=== PATIENT | female | born 1965 | race Caucasian/White ===

== ENCOUNTER 2023-01-03 05:43 | Day surgery (SDC) | payer OTHER ==
[2022-12-30 11:38] VITALS: BMI 21.2
[2023-01-03] MEDS ORDERED: LIDOCAINE 1% (10MG/ML) FOR IV START INTRADERMA PRN (06:16)
[2023-01-03 06:29] VITALS: TEMP 97.5
[2023-01-03] MEDS: LACTATED RINGERS 1,000 ML IV SCH ×2 (06:41→06:59)
[2023-01-03] MEDS ORDERED: PROPOFOL 10 MG/ML 20 ML VIAL IV ONE (07:05)
[2023-01-03] MEDS ORDERED: LIDOCAINE 2% INJ 20 MG/ML (2 ML VIAL) ONE (07:05)
--- NOTE | 2023-01-03 07:32 | P.PCN ---
Date of Procedure: 01/03/23 Procedure(s) Performed: Brief history: Patient is a pleasant 57-year-old white female scheduled for an elective upper endoscopy as well as colonoscopy as a part of evaluation of intermittent nausea vomiting and rectal bleeding for the last several months duration. She also has chronic diarrhea, was admitted from 4-5 a day which are watery in consistency. Procedure performed: Esophagogastroduodenoscopy with biopsy Colonoscopy with biopsy and snare polypectomy Preoperative diagnosis: Intermittent episodes of nausea vomiting Chronic diarrhea and rectal bleeding Anesthesia: MAC Procedure: After informed consent was obtained from the patient was brought into the endoscopy unit and IV sedation was administered by anesthesia under continuous monitoring. Initially upper endoscopy was done. The Olympus GF 160 video endoscope was inserted inserted into the mouth and esophagus intubated without a ny difficulty and was gradually advanced into the stomach and duodenum and carefully examined. The bulb and second part of the duodenum appeared normal. Abscesses were done from the duodenum to rule out celiac disease. The scope was then withdrawn into the stomach adequately insufflated with air and upon careful examination the antrum had mild gastritis and biopsies were done from this area. Mucosa of thedy, cardia and fundus appeared normal. The scope was then withdrawn into the esophagus. small hiatal hernia noted. The GE junction was located at 40 cm to the incisors. It appeared regular with no erythema erosions or ulcerations. Rest of the esophagus appeared normal. Patient tolerated the procedure well. At this time the patient continued to remain sedation. Initial digital rectal examination was normal. Olympus CF 160 video colonoscope was then inserted into the rectum and gradually advanced to the cecum without any difficulty. Careful examination was performed as the scope was gradually being withdrawn. The prep was excellent. The cecum, appeared normal. Ascending colon there was a 2 cm broad-based polyp removed by piecemeal snare polypectomy and complete scarlet ypectomy accomplished. Rest of the ascending colon, transverse colon, descending colon, sigmoid colon and rectum appeared normal. scattered sigmoid diverticulosis seen. Random biopsies were done from ascending and descending colon to rule out microscopic/collagenous colitis. Retroflexion was performed in the rectum and grade 2 internal hemorrhoidsre noted. Patient tolerated the procedure well. Impression: 1. Upper endoscopy revealed small hiatal hernia and mild antral gastritis 2. Colonoscopy revealed 2 cm broad-based ascending colon polyp status post polypectomy, scattered sigmoid diverticulosis and grade 2 internal hemorrhoids Recommendations: Findings of this examination were discussed with the patient as well as her family. She was advised to follow with the biopsy results. she'll be seen in office in 2 weeks. Based on the biopsy results will plan a repeat colonoscopy in 3 years. In the meantime she was advised to avoid straining and constipation and continue with a high-fiber diet.
[2023-01-03 07:48] VITALS: RESP 16
[2023-01-03 08:07] VITALS: BP 123/84; PULSE 97
== END 2023-01-03 08:41 | disposition home or self-care (01) ==
LOC: ORWHC2ENDO 05:43
PROVIDERS: ATTEND Internal Medicine Gastroenterology
DX: K29.50 Unspecified chronic gastritis without bleeding (principal); K44.9 Diaphragmatic hernia without obstruction or gangrene; D12.2 Benign neoplasm of ascending colon; K21.9 Gastro-esophageal reflux disease without esophagitis; Z87.19 Personal history of other diseases of the digestive system; K64.1 Second degree hemorrhoids; Z79.899 Other long term (current) drug therapy
CPT/HCPCS: 88305; 45380; 45385; 43239; J2704; J2001

== ENCOUNTER 2023-11-29 11:45 | Inpatient (IN) | payer OTHER ==
[2023-11-29] MEDS: SODIUM CHLORIDE 0.9% 1,000 ML IV STA (12:26)
[2023-11-29 12:35] LABS: Anisocytosis Slight; Basophils % (A) 1 %; Eosinophils # (A) 0.1 k/uL (0-0.7); Eosinophils % (A) 1 %; Hypochromasia Marked; Lymphocytes # (A) 1.4 k/uL (1.0-4.8); Lymphocytes % (A) 20 %; MCH 27.9 pg (25.0-35.0); MCHC 30.3 g/dL (31.0-37.0); MCV 91.8 fL (80.0-100.0); Mean Platelet Volume 8.5; Monocytes # (A) 0.5 k/uL (0-1.0); Monocytes % (A) 7 %; Neutrophils # (A) 4.6 k/uL (1.3-7.7); Neutrophils % (A) 67 %; Platelet Count 277 k/uL (150-450); Poikilocytosis Moderate; RBC 2.12 m/uL (3.80-5.40); RDW 19.7 % (11.5-15.5); WBC 6.8 k/uL (3.8-10.6)
[2023-11-29 12:39] LABS: HGB 5.9 gm/dL (11.4-16.0)
[2023-11-29 12:40] LABS: HCT 19.4 % (34.0-46.0)
[2023-11-29 12:42] LABS: Partial Thromboplastin Time 24.4 sec (22.0-30.0)
--- NOTE | 2023-11-29 12:44 | XR ---
EXAMINATION TYPE: XR chest 2V DATE OF EXAM: 11/29/2023 12:37 PM CLINICAL INDICATION:Female, 58 years old with history of Weakness; [facility] COMPARISON: None TECHNIQUE: XR chest 2V Frontal view of the chest. FINDINGS: Lungs/Pleura: There is flattening of the diaphragm with increased lucency of the lungs. No evidence o f pneumothorax, pleural effusion or focal consolidation. Pulmonary vascularity: Unremarkable. Heart/mediastinum: Cardiomediastinal silhouette is unremarkable. Musculoskeletal: No acute osseous pathology. IMPRESSION: 1. No acute cardiopulmonary disease process. 2. COPD changes.
[2023-11-29 12:57] LABS: ALT 14 U/L (4-34); AST 75 U/L (14-36); African American GFR (CKD) >90 (>60 ml/min/1.73 sqM); Albumin 3.9 g/dL (3.5-5.0); Alkaline Phosphatase 146 U/L (38-126); Anion Gap 25 mmol/L; Blood Urea Nitrogen 7 mg/dL (7-17); Calcium 8.5 mg/dL (8.4-10.2); Carbon Dioxide 19 mmol/L (22-30); Chloride 90 mmol/L (98-107); Glucose 58 mg/dL (74-99); Non-African American GFR(CKD) >90 (>60 ml/min/1.73 sqM); Sodium 134 mmol/L (137-145); Total Bilirubin 1.6 mg/dL (0.2-1.3); Total Protein 6.2 g/dL (6.3-8.2)
--- NOTE | 2023-11-29 13:02 | ED ---
General Adult HPI - General Chief complaint: Weakness Stated complaint: Weakness Time Seen by Provider: 11/29/23 12:08 Source: patient, RN notes reviewed, old records reviewed Mode of arrival: wheelchair Limitations: no limitations - History of Present Illness Initial comments: 58-year-old female presenting with progressive weakness over the past 2 years. This has progressed to the point where the patient is not able to get around her home, she is not able to eat or drink secondary to the weakness. She has had poor appetite. She does report a chronic cough. No significant pain complaints. No headache. Patient history is also obtained from a caregiver and friend. - Related Data Home Medications Medication Instructions Recorded Confirmed No Known Home Medications 11/29/23 11/29/23 Allergies Allergy/AdvReac Type Severity Reaction Status Date / Time No Known Allergies Allergy Verified 11/29/23 13:11 Review of Systems ROS Statement: Those systems with pertinent positive or pertinent negative responses have been documented in the HPI. ROS Other: All systems not noted in ROS Statement are negative. Past Medical History Past Medical History: GERD/Reflux Additional Past Medical History / Comment(s): HAD BEEN HAVING DIARRHEA WITH B LOOD FOR PAST SEVERAL MONTHS History of Any Multi-Drug Resistant Organisms: None Reported Additional Past Surgical History / Comment(s): ORAL SX. COLONOSCOPY Past Anesthesia/Blood Transfusion Reactions: No Reported Reaction Past Psychological History: No Psychological Hx Reported Smoking Status: Current every day smoker - Past Family History Father Family Medical History: Cancer General Exam Limitations: no limitations General appearance: alert, cachectic Head exam: Present: atraumatic, normocephalic Eye exam: Present: normal appearance, PERRL ENT exam: Present: normal exam Neck exam: Present: normal inspection. Absent: tenderness, meningismus Respiratory exam: Present: normal lung sounds bilaterally. Absent: respiratory distress, wheezes Cardiovascular Exam: Present: regular rate, normal rhythm GI/Abdominal exam: Present: soft. Absent: distended, tenderness Rectal exam: Present: other (stage II sacral wound). Absent: black stool, bloo dy stool, hemorrhoids Extremities exam: Present: normal inspection, normal capillary refill. Absent: pedal edema Neurological exam: Present: alert, oriented X3. Absent: motor sensory deficit Psychiatric exam: Present: normal affect, normal mood Course Vital Signs 07/10/24 07/10/24 07/10/24 11:49 13:35 14:48 Temperature 97.8 F Pulse Rate 110 H 105 H 106 H Respiratory 18 18 16 Rate Blood Pressure 96/60 87/58 103/70 O2 Sat by Pulse 100 100 100 Oximetry 11/29/23 11/29/23 11/29/23 14:58 15:06 15:26 Temperature 98.3 F 98.2 F 98.1 F Pulse Rate 104 H 99 100 Respiratory 16 16 16 Rate Blood Pressure 113/73 115/74 110/76 O2 Sat by Pulse Oximetry 11/29/23 17:10 Temperature 98.3 F Pulse Rate 104 H Respiratory 18 Rate Blood Pressure 135/93 O2 Sat by Pulse 100 Oximetry Medical Decision Making - Medical Decision Making Was pt. sent in by a medical professional or institution (CARLOS Cardenas, RESOURCE PROGRAM TEACHER, urgent care, hospital, or custodial...) When possible be specific @ -No Did you speak to anyone other than the patient for history (EMS, parent, family, police, friend...)? What history was obtained from this source @ -No Did you review nursing and triage notes (agree or disagree)? Why? @ -I reviewed and agree with nursing and triage notes Were old charts reviewed (outside hosp., previous admission, EMS record, old EKG, old radiological studies, urgent care reports/EKG's, custodial records)? Report findings @ -No old charts were reviewed Differential Weakness: Hypoglycemia, shock, sepsis, hyponatremia, anemia, infection, MO, ETOH, adverse medicine reaction, overdose, stroke, this is not meant to be an all-inclusive list. EKG interpreted by me (3pts min.). @ -Sinus tachycardia rate of 106, AK interval 148, QRS duration 61, QTc [address] segment elevation. X-rays interpreted by me (1pt min.). @ -[Chest x-ray negative for acute cardiopulmonary findings CT interpreted by me (1pt min.). @ -None done U/S interpreted by me (1pt. min.). @ -None done What testing was considered but not performed or refused? (CT, X-rays, U/S, labs)? Why? @ -None What meds were considered but not given or refused? Why? @ -None Did you discuss the management of the patient with other professionals (professionals i.e. CARLOS Cardenas, RESOURCE PROGRAM TEACHER, lab, RT, psych nurse, social work specialist, sustainment logistics analyst, teacher, chief revenue officer, catalytic case operator)? Give summary @ -No Was smoking cessation discussed for >3mins.? @ -No Was critical care preformed (if so, how long)? @ -No Were there social determinants of health that impacted care today? How? (Homelessness, low income, unemployed, alcoholism, drug addiction, transportation, low edu. Level, literacy, decrease access to med. care, detention, rehab)? @ -No Was there de-escalation of care discussed even if they declined (Discuss DNR or withdrawal of care, Hospice)? DNR status @ -No What co-morbidities impacted this encounter? (DM, HTN, Smoking, COPD, CAD, Cancer, CVA, ARF, Chemo, Hep., AIDS, mental health diagnosis, sleep apnea, morbid obesity)? @ -[COPD Was patient admitted / discharged? Hospital course, mention meds given and route, prescriptions, significant lab abnormalities, going to OR and other pertinent info. @ -58 -year-old female presenting with increased weakness, sacral decubitus ulcer. Patient is cachectic, admits to poor oral intake. Patient has normal white blood cell count, anemia of 5.9 with no comparison. Patient also has significant electrolyte abnormalities including hypokalemia, hypomagnesemia. She has a lactic acid which I suspect is from dehydration. Patient transfused a unit of red blood cells, started on proton pump inhibitor, electrolytes are replaced. Patient admitted to Dr. Mulligan. Undiagnosed new problem with uncertain prognosis? @ -No Drug Therapy requiring intensive monitoring for toxicity (Heparin, Nitro, Insulin, Cardizem)? @ -No Were any procedures done? @ -No Diagnosis/symptom? @Weakness anemia, hypomagnesemia Acute, or Chronic, or Acute on Chronic? @ -Acute Uncomplicated (without systemic symptoms) or Complicated (systemic symptoms)? @ -Default Side effects of treatment? @ -No Exacerbation, Progression, or Severe Exacerbation? @ -No Poses a threat to life or bodily function? How? (Chest pain, USA, MO, pneumonia, PE, COPD, DKA, ARF, appy, cholecystitis, CVA, Diverticulitis, Homicidal, Suicidal, threat to staff... and all critical care pts) @ -yes, anemia, GI bleed, electrolyte abnormality - Lab Data Result diagrams: 11/29/23 12:10 11/29/23 12:10 Lab Results 11/29/23 11/29/23 11/29/23 Range/Units 12:10 12:10 12:10 WBC 6.8 (3.8-10.6) k/uL RBC 2.12 L (3.80-5.40) m/uL Hgb 5.9 L* (11.4-16.0) gm/dL Hct 19.4 L* (34.0-46.0) % MCV 91.8 (80.0-100.0) fL MCH 27.9 (25.0-35.0) pg MCHC 30.3 L (31.0-37.0) g/dL RDW 19.7 H (11.5-15.5) % Plt Count 277 (150-450) k/uL MPV 8.5 Neutrophils % 67 % Lymphocytes % 20 % Monocytes % 7 % Eosinophils % 1 % Basophils % 1 % Neutrophils # 4.6 (1.3-7.7) k/uL Lymphocytes # 1.4 (1.0-4.8) k/uL Monocytes # 0.5 (0-1.0) k/uL Eosinophils # 0.1 (0-0.7) k/uL Basophils # 0.0 (0-0.2) k/uL Hypochromasia Marked Poikilocytosis Moderate Anisocytosis Slight PT 11.0 (10.0-12.5) sec INR 1.0 (<1.2) APTT 24.4 (22.0-30.0) sec Sodium 134 L (137-145) mmol/L Potassium 3.0 L (3.5-5.1) mmol/L Chloride 90 L (98-107) mmol/L Carbon Dioxide 19 L (22-30) mmol/L Anion Gap 25 mmol/L BUN 7 (7-17) mg/dL Creatinine 0.44 L (0.52-1.04) mg/dL Est GFR (CKD-EPI)AfAm >90 (>60 ml/min/1.73 sqM) Est GFR (CKD-EPI)NonAf >90 (>60 ml/min/1.73 sqM) Glucose 58 L (74-99) mg/dL Lactic Ac Sepsis Rflx Plasma Lactic Acid Anjel (0.7-2.0) mmol/L Calcium 8.5 (8.4-10.2) mg/dL Magnesium 1.0 L (1.6-2.3) mg/dL Total Bilirubin 1.6 H (0.2-1.3) mg/dL AST 75 H (14-36) U/L ALT 14 (4-34) U/L Alkaline Phosphatase 146 H (38-126) U/L Troponin I (0.000-0.034) ng/mL Total Protein 6.2 L (6.3-8.2) g/dL Albumin 3.9 (3.5-5.0) g/dL Blood Type Blood Type Confirm Blood Type Recheck Bld Type Recheck Status Antibody Screen Crossmatch Spec Expiration Date 11/29/23 11/29/23 11/29/23 Range/Units 12:10 12:10 13:04 WBC (3.8-10.6) k/uL RBC (3.80-5.40) m/uL Hgb (11.4-16.0) gm/dL Hct (34.0-46.0) % MCV (80.0-100.0) fL MCH (25.0-35.0) pg MCHC (31.0-37.0) g/dL RDW (11.5-15.5) % Plt Count (150-450) k/uL MPV Neutrophils % % Lymphocytes % % Monocytes % % Eosinophils % % Basophils % % Neutrophils # (1.3-7.7) k/uL Lymphocytes # (1.0-4.8) k/uL Monocytes # (0-1.0) k/uL Eosinophils # (0-0.7) k/uL Basophils # (0-0.2) k/uL Hypochromasia Poikilocytosis Anisocytosis PT (10.0-12.5) sec INR (<1.2) APTT (22.0-30.0) sec Sodium (137-145) mmol/L Potassium (3.5-5.1) mmol/L Chloride (98-107) mmol/L Carbon Dioxide (22-30) mmol/L Anion Gap mmol/L BUN (7-17) mg/dL Creatinine (0.52-1.04) mg/dL Est GFR (CKD-EPI)AfAm (>60 ml/min/1.73 sqM) Est GFR (CKD-EPI)NonAf (>60 ml/min/1.73 sqM) Glucose (74-99) mg/dL Lactic Ac Sepsis Rflx Plasma Lactic Acid Anjel (0.7-2.0) mmol/L Calcium (8.4-10.2) mg/dL Magnesium (1.6-2.3) mg/dL Total Bilirubin (0.2-1.3) mg/dL AST (14-36) U/L ALT (4-34) U/L Alkaline Phosphatase (38-126) U/L Troponin I <0.012 (0.000-0.034) ng/mL Total Protein (6.3-8.2) g/dL Albumin (3.5-5.0) g/dL Blood Type O Positive Blood Type Confirm O Positive Blood Type Recheck No Previous Record Bld Type Recheck Status CABO Indicated Antibody Screen NEGATIVE Crossmatch See Detail Spec Expiration Date 12/02/2023 - 230311/29/23 11/29/23 Range/Units 13:07 13:58 WBC (3.8-10.6) k/uL RBC (3.80-5.40) m/uL Hgb (11.4-16.0) gm/dL Hct (34.0-46.0) % MCV (80.0-100.0) fL MCH (25.0-35.0) pg MCHC (31.0-37.0) g/dL RDW (11.5-15.5) % Plt Count (150-450) k/uL MPV Neutrophils % % Lymphocytes % % Monocytes % % Eosinophils % % Basophils % % Neutrophils # (1.3-7.7) k/uL Lymphocytes # (1.0-4.8) k/uL Monocytes # (0-1.0) k/uL Eosinophils # (0-0.7) k/uL Basophils # (0-0.2) k/uL Hypochromasia Poikilocytosis Anisocytosis PT (10.0-12.5) sec INR (<1.2) APTT (22.0-30.0) sec Sodium (137-145) mmol/L Potassium (3.5-5.1) mmol/L Chloride (98-107) mmol/L Carbon Dioxide (22-30) mmol/L Anion Gap mmol/L BUN (7-17) mg/dL Creatinine (0.52-1.04) mg/dL Est GFR (CKD-EPI)AfAm (>60 ml/min/1.73 sqM) Est GFR (CKD-EPI)NonAf (>60 ml/min/1.73 sqM) Glucose (74-99) mg/dL Lactic Ac Sepsis Rflx Y Plasma Lactic Acid Anjel 3.8 H* (0.7-2.0) mmol/L Calcium (8.4-10.2) mg/dL Magnesium (1.6-2.3) mg/dL Total Bilirubin (0.2-1.3) mg/dL AST (14-36) U/L ALT (4-34) U/L Alkaline Phosphatase (38-126) U/L Troponin I (0.000-0.034) ng/mL Total Protein (6.3-8.2) g/dL Albumin (3.5-5.0) g/dL Blood Type Blood Type Confirm Blood Type Recheck Bld Type Recheck Status Antibody Screen Crossmatch Spec Expiration Date Disposition Clinical Impression: Anemia, Dehydration, Hypomagnesemia Disposition: ADMITTED IP TO THIS HOSP Condition: Stable Is patient prescribed a controlled substance at d/c from ED?: No Time of Disposition: 14:21
[2023-11-29] MEDS: PANTOPRAZOLE 40 MG/10 ML VIAL IVP STA (13:18)
[2023-11-29] MEDS: D5-0.9% NACL WITH KCL 40 MEQ/L 1,000 ML IV SCH (14:09)
[2023-11-29] MEDS ORDERED: NALOXONE 0.4 MG/ML 1 ML VIAL IV PRN (14:16)
[2023-11-29] MEDS ORDERED: ACETAMINOPHEN TAB 325 MG TAB PO PRN (14:16)
[2023-11-29] MEDS: MAGNESIUM SULFATE-D5W PMX 1 GM in DEXTROSE/WATER 1 100ML.BAG IVPB SCH (14:31)
[2023-11-29 17:53] LABS: Appearance,Urine Clear (Clear); Bacteria,Urine Occasional /hpf; Bilirubin,Urine Negative (Negative); Blood,Urine Negative (Negative); Color,Urine Yellow; Glucose,Urine (UA) Negative (Negative); Hyaline Casts,Urine 5 /lpf (0-2); Ketones,Urine 4+ (Negative); Leukocyte Esterase,Urine Negative (Negative); Mucus,Urine Rare /hpf; Nitrite,Urine Positive (Negative); Protein,Urine Trace (Negative); Specific Gravity,Urine 1.013 (1.001-1.035); Squamous Epithelial Cell,Urine 1 /hpf (0-4); WBC,Urine 1 /hpf (0-5)
[2023-11-29] MEDS: PANTOPRAZOLE 40 MG/10 ML VIAL IVP SCH (20:53)
--- NOTE | 2023-11-30 01:55 | P.HPIM ---
History of Present Illness H&P Date: 11/29/23 Chief Complaint: Generalized weakness Patient is a 58-year-old female with a past medical history of GERD/reflux, chronic anemia, severe alcohol abuse and currently everyday smoker presents to ER due to generalized weakness and unable to take care of her at home. Patient was unable to get around her home and also not able to eat or drink secondary to weakness. Patient has not been getting around for the past 2 years. Patient does have history of chronic diarrhea and underwent EGD and colonoscopy about a year back. No active bleeding was noted at that time. Patient complains of coughing up brown liquid sometimes. Also complaining of epigastric discomfort. No complaints of chest pain. Patient is currently not taking any medications at home. Patient has been h aving poor appetite. Continues to smoke. Has been having chronic cough. Patient also complained of sacral pressure ulcer. Patient is unable to provide much history. Patient lives by herself and her friend who is 80-year-old gentleman provides care for her. On admission chest x-ray showed no acute cardiopulmonary process. COPD changes. EKG showed sinus tachycardia. Laboratory data showed WBC 6.8 hemoglobin 5.9 and platelets 277 RDW 19.7 Sodium 134 potassium 3.0 chloride 90 bicarb is 19 BUN 17 creatinine 0.44 and blood sugar 58 and lactic acid 3.8 and magnesium 1.0 total bili 1.6 AST 75 ALT 14 alk phos 146 troponin x 1 negative albumin 3.9 Urinalysis showed trace protein glucose negative 4+ ketones and nitrite positive RBCs and WBCs 1 hyaline cast 5. Review of Systems Complete review of systems could not be obtained from the patient except as per HPI Past Medical History Past Medical History: GERD/Reflux Additional Past Medical History / Comment(s): HAD BEEN HAVING DIARRHEA WITH BLOOD FOR PAST SEVERAL MONTHS History of Any Multi-Drug Resistant Organisms: None Reported Additional Past Surgical History / Comment(s): ORAL SX. COLONOSCOPY Past Anesthesia/Blood Transfusion Reactions: No Reported Reaction Past Psychological History: No Psychological Hx Reported Smoking Status: Current every day smoker - Past Family History Father Family Medical History: Cancer Medications and Allergies Home Medications Medication Instructions Recorded Confirmed Type No Known Home Medications 11/29/23 11/29/23 History Allergies Allergy/AdvReac Type Severity Reaction Status Date / Time No Known Allergies Allergy Verified 11/29/23 13:11 Physical Exam Vitals: Vital Signs Temp Pulse Resp BP Pulse Ox 11/30/23 01:13 112 H 18 126/81 100 11/29/23 22:16 117 H 20 119/79 100 11/29/23 18:32 97.3 F L 118 H 18 122/82 100 11/29/23 17:10 98.3 F 104 H 18 135/93 100 11/29/23 15:26 98.1 F 100 16 110/76 11/29/23 15:06 98.2 F 99 16 115/74 11/29/23 14:58 98.3 F 104 H 16 113/73 11/29/23 14:48 106 H 16 103/70 100 11/29/23 13:35 105 H 18 87/58 100 11/29/23 11:49 97.8 F 110 H 18 96/60 100 Intake and Output 11/29/23 11/29/23 11/30/23 14:59 22:59 06:59 Intake Total 0 287 Balance 0 287 Intake: Blood Product 0 287 Rc Pheresis 2 As3 Unit 0 287 [id number] Other: Weight 49.895 kg PHYSICAL EXAMINATION: Patient is lying in the bed,, no acute distress, awake alert and oriented but lethargic and weak and unable to communicate... HEENT: Normocephalic. Neck is supple. Pupils reactive. Nostrils clear. Oral cavity is moist. Neck reveals no JVD, carotid bruits, or thyromegaly. CHEST EXAMINATION: Trachea is central. Symmetrical expansion. Bibasilar diminished sounds. Lung abrams clear to auscultation and percussion. CARDIAC: Normal S1, S2 with no gallops. No murmurs ABDOMEN: Soft. Bowel sounds normal. No organomegaly. No abdominal bruits. Extremities: reveal no edema. No clubbing or cyanosis Neurologically awake, alert, oriented x 2-3. Able to move all extremities while in bed. No gross focal neurological deficit. Skin: No rash. patient does have stage II sacral decub ulcers Psychiatric: Coperative. Could not be assessed completely Musculoskeletal: No joint swelling or deformity. Results CBC & Chem 7: 11/30/23 09:53 11/30/23 03:33 Labs: Abnormal Lab Results - Last 24 Hours (Table) 07/10/24 07/10/24 07/10/24 Range/Units 12:10 12:10 13:04 RBC 2.12 L (3.80-5.40) m/uL Hgb 5.9 L* (11.4-16.0) gm/dL Hct 19.4 L* (34.0-46.0) % MCHC 30.3 L (31.0-37.0) g/dL RDW 19.7 H (11.5-15.5) % Sodium 134 L (137-145) mmol/L Potassium 3.0 L (3.5-5.1) mmol/L Chloride 90 L (98-107) mmol/L Carbon Dioxide 19 L (22-30) mmol/L Creatinine 0.44 L (0.52-1.04) mg/dL Glucose 58 L (74-99) mg/dL Plasma Lactic Acid Anjel (0.7-2.0) mmol/L Magnesium 1.0 L (1.6-2.3) mg/dL Total Bilirubin 1.6 H (0.2-1.3) mg/dL AST 75 H (14-36) U/L Alkaline Phosphatase 146 H (38-126) U/L Total Protein 6.2 L (6.3-8.2) g/dL Urine Protein (Negative) Urine Ketones (Negative) Urine Nitrite (Negative) Urine Bacteria (None) /hpf Hyaline Casts (0-2) /lpf Urine Mucus (None) /hpf Crossmatch See Detail 11/29/23 11/29/23 11/29/23 Range/Units 13:07 16:23 17:10 RBC (3.80-5.40) m/uL Hgb (11.4-16.0) gm/dL Hct (34.0-46.0) % MCHC (31.0-37.0) g/dL RDW (11.5-15.5) % Sodium (137-145) mmol/L Potassium (3.5-5.1) mmol/L Chloride (98-107) mmol/L Carbon Dioxide (22-30) mmol/L Creatinine (0.52-1.04) mg/dL Glucose (74-99) mg/dL Plasma Lactic Acid Anjel 3.8 H* 4.2 H* (0.7-2.0) mmol/L Magnesium (1.6-2.3) mg/dL Total Bilirubin (0.2-1.3) mg/dL AST (14-36) U/L Alkaline Phosphatase (38-126) U/L Total Protein (6.3-8.2) g/dL Urine Protein Trace H (Negative) Urine Ketones 4+ H (Negative) Urine Nitrite Positive H (Negative) Urine Bacteria Occasional H (None) /hpf Hyaline Casts 5 H (0-2) /lpf Urine Mucus Rare H (None) /hpf Crossmatch 11/29/23 11/29/23 Range/Units 19:42 22:53 RBC (3.80-5.40) m/uL Hgb (11.4-16.0) gm/dL Hct (34.0-46.0) % MCHC (31.0-37.0) g/dL RDW (11.5-15.5) % Sodium (137-145) mmol/L Potassium (3.5-5.1) mmol/L Chloride (98-107) mmol/L Carbon Dioxide (22-30) mmol/L Creatinine (0.52-1.04) mg/dL Glucose (74-99) mg/dL Plasma Lactic Acid Anjel 4.2 H* 3.6 H* (0.7-2.0) mmol/L Magnesium (1.6-2.3) mg/dL Total Bilirubin (0.2-1.3) mg/dL AST (14-36) U/L Alkaline Phosphatase (38-126) U/L Total Protein (6.3-8.2) g/dL Urine Protein (Negative) Urine Ketones (Negative) Urine Nitrite (Negative) Urine Bacteria (None) /hpf Hyaline Casts (0-2) /lpf Urine Mucus (None) /hpf Crossmatch Thrombosis Risk Factor Assmnt - DVT/VTE Prophylaxis DVT/VTE Prophylaxis: Mechanical Prophylaxis ordered Assessment and Plan Assessment: Symptomatic anemia Chronic anemia with hemoglobin 5.9 on admission rule out iron deficiency and B12 deficiency Hypovolemic hyponatremia due to poor oral intake Severe hypokalemia and hypomagnesemia Lactic acidosis due to dehydration volume depletion History of alcohol abuse. Mild transaminitis Medical debility unable to provide care for her Stage II sacral decub ulcers DVT prophylaxis SCDs Plan: Patient will be continued on IV hydration with D5 normal saline and continue to replace electrolytes. Follow-up phosphorus level. Patient will be continued on Protonix IV twice daily and monitor H&H. Patient is being transfused with 1 unit of PRBC. GI was consulted for possible EGD. Follow-up iron profile, B12, folate and TSH levels. Pain management with Tylenol. Discussed with her friend at bedside in detail. Prognosis guarded. PT OT to be consulted. Time with Patient: Greater than 30
[2023-11-30] MEDS: MAGNESIUM SULFATE-D5W PMX 1 GM in DEXTROSE/WATER 1 100ML.BAG IVPB SCH (03:18)
[2023-11-30 04:11] LABS: Anisocytosis Slight; Basophils % (A) 0 %; Eosinophils % (A) 0 %; HCT 21.3 % (34.0-46.0); Hypochromasia Moderate; Lymphocytes # (A) 0.9 k/uL (1.0-4.8); Lymphocytes % (A) 15 %; MCH 29.3 pg (25.0-35.0); MCHC 32.7 g/dL (31.0-37.0); MCV 89.4 fL (80.0-100.0); Mean Platelet Volume 8.7; Monocytes # (A) 0.4 k/uL (0-1.0); Monocytes % (A) 6 %; Neutrophils # (A) 4.9 k/uL (1.3-7.7); Neutrophils % (A) 77 %; Platelet Count 217 k/uL (150-450); Poikilocytosis Moderate; RBC 2.39 m/uL (3.80-5.40); RDW 19.1 % (11.5-15.5); WBC 6.4 k/uL (3.8-10.6)
[2023-11-30 04:31] LABS: ALT 12 U/L (4-34); AST 47 U/L (14-36); African American GFR (CKD) >90 (>60 ml/min/1.73 sqM); Albumin 2.9 g/dL (3.5-5.0); Alkaline Phosphatase 133 U/L (38-126); Anion Gap 11 mmol/L; Blood Urea Nitrogen 4 mg/dL (7-17); Calcium 7.4 mg/dL (8.4-10.2); Carbon Dioxide 20 mmol/L (22-30); Chloride 99 mmol/L (98-107); Glucose 165 mg/dL (74-99); Non-African American GFR(CKD) >90 (>60 ml/min/1.73 sqM); Phosphorus 1.5 mg/dL (2.5-4.5); Potassium 3.2 mmol/L (3.5-5.1); Sodium 130 mmol/L (137-145); Total Bilirubin 2.3 mg/dL (0.2-1.3)
--- NOTE | 2023-11-30 08:14 | XR ---
EXAMINATION TYPE: XR chest 1V DATE OF EXAM: 11/30/2023 5:23 AM CLINICAL INDICATION:Female, 58 years old with history of tachycardia; COMPARISON: None TECHNIQUE: XR chest 1V Frontal view of the chest. FINDINGS: Lungs/Pleura: There is no evidence of pleural effusion, focal consolidation, or pneumothorax. Pulmonary vascularity: Unremarkable. Heart/mediastinum: Cardiomediastinal silhouette is unremarkable. Musculoskeletal: Degenerative changes of the shoulder joints. Other findings: None IMPRESSION: No acute cardiopulmonary disease/process.
[2023-11-30 10:23] LABS: Anisocytosis Slight; Hypochromasia Moderate; MCH 29.3 pg (25.0-35.0); MCHC 32.6 g/dL (31.0-37.0); MCV 89.7 fL (80.0-100.0); Mean Platelet Volume 8.1; Platelet Count 215 k/uL (150-450); Poikilocytosis Moderate; RBC 2.34 m/uL (3.80-5.40); RDW 19.2 % (11.5-15.5); WBC 5.4 k/uL (3.8-10.6)
[2023-11-30 10:26] LABS: HGB 6.9 gm/dL (11.4-16.0)
--- NOTE | 2023-11-30 15:07 | P.CONS ---
History of Present Illness - Reason for Consult Consult date: 11/30/23 Anemia Requesting physician: Vijay Broussard - Chief Complaint Weakness - History of Present Illness This is a 58-year-old female who presented to the emergency department with weakness and debilitation. Patient states that she has been progressively getting weaker over the last couple weeks duration. She is not getting around well for the last couple years and is getting increasingly difficult. She states she lives alone she has a 84-year-old gentleman that comes to the house once a week to check on her. She does have a history of alcohol abuse and still drinks regularly but patient is not divulging how much. She is known to be anemic with a hemoglobin of 5.9 on admission. Gastroenterology was consulted for anemia. Iron studies were ordered but currently pending. She has a history of previous complaints of abdominal pain and diarrhea and underwent upper and lower endoscopy on 01/03/2023 with findings of upper endoscopy mild gastritis, hiatal hernia. Colonoscopy with findings of colon polyps status post polypectomy, diverticulosis and grade 2 internal hemorrhoids. Patient denies any blood in her stool or black stool. Denies any abdominal pain nausea or vomiting. States that she has had decreased appetite and not eating well. Today's repeat labs WBC 5.4 hemoglobin 6.9 hematocrit 21 platelet count 215,000 INR 1.0 sodium 130 potassium 3.2 BUN 4 creatinine 0.38 lactic acid 6.1 total bilirubin 2.3 AST 47 ALT 12 alkaline phosphatase 133 patient's urine positive for nitrites Review of Systems REVIEW OF SYSTEMS: CARDIOPULMONARY: No chest pain or shortness of breath. Gastrointestinal: No abdominal pain. No nausea or vomiting. No hematemesis, coffee-ground emesis. No rectal bleeding, or melena. GENITOURINARY: No dysuria or hematuria. MUSCULOSKELETAL: Reports normal range of motion. SKIN: No rashes. No jaundice. Sacral wound. ENDOCRINE: No chills, fevers. No excessive weight gain or loss. No polydipsia or polyuria. PSYCHIATRIC: Unremarkable. NEUROLOGY: No change in mental status. Denies dizziness, headache. ENT: Vision unremarkable. CONSTITUTIONAL: No recent weight loss. No fever, chills, night sweats. Increased weakness, decreased appetite. Past Medical History Past Medical History: GERD/Reflux Additional Past Medical History / Comment(s): HAD BEEN HAVING DIARRHEA WITH BLOOD FOR PAST SEVERAL MONTHS History of Any Multi-Drug Resistant Organisms: None Reported Additional Past Surgical History / Comment(s): ORAL SX. COLONOSCOPY Past Anesthesia/Blood Transfusion Reactions: No Reported Reaction Past Psychological History: No Psychological Hx Reported Smoking Status: Current every day smoker - Past Family History Father Family Medical History: Cancer Medications and Allergies Home Medications Medication Instructions Recorded Confirmed Type No Known Home Medications 11/29/23 11/29/23 History Allergies Allergy/AdvReac Type Severity Reaction Status Date / Time No Known Allergies Allergy Verified 11/29/23 13:11 Physical Exam Vitals: Vital Signs Temp Pulse Pulse Resp BP BP Pulse Ox 11/30/23 11:54 98.2 F 105 H 16 94/64 97 11/30/23 11:00 105 H 97/79 100 11/30/23 09:00 100 101/69 100 11/30/23 08:12 96 11/30/23 08:00 98 99/70 100 11/30/23 06:53 112 H 18 102/68 100 11/30/23 04:09 105 H 18 110/70 100 11/30/23 01:13 112 H 18 126/81 100 11/29/23 22:16 117 H 20 119/79 100 11/29/23 18:32 97.3 F L 118 H 18 122/82 100 11/29/23 17:10 98.3 F 104 H 18 135/93 100 11/29/23 15:26 98.1 F 100 16 110/76 11/29/23 15:06 98.2 F 99 16 115/74 11/29/23 14:58 98.3 F 104 H 16 113/73 Intake and Output 11/29/23 11/30/23 11/30/23 22:59 06:59 14:59 Intake Total 287 138 Output Total 400 Balance 287 -262 Intake: IV 20 Invasive Line 1 10 Invasive Line 2 10 Oral 118 Blood Product 287 Rc Pheresis 2 As3 Unit 287 [id number] Output: Urine 400 Other: Voiding Method Diaper External Catheter General appearance: The patient is alert, oriented, appears in no acute distress. HET: Head is normocephalic and atraumatic. Conjunctiva pink. Sclera anicteric. Neck: Supple without lymphadenopathy. Trachea midline. Heart: Regular. Lungs: Equal expansion, normal respiratory effort. Abdomen: Soft, thin, nontender, nondistended. Skin: No rashes. Mild jaundice. Extremities: Normal skin color and turgor. No pedal edema. Neurological: No focal deficits. Alert and oriented x3. Results CBC & Chem 7: 11/30/23 09:53 11/30/23 03:33 Labs: Abnormal Lab Results - Last 24 Hours (Table) 11/29/23 11/29/23 11/29/23 Range/Units 13:04 16:23 17:10 RBC (3.80-5.40) m/uL Hgb (11.4-16.0) gm/dL Hct (34.0-46.0) % RDW (11.5-15.5) % Lymphocytes # (1.0-4.8) k/uL Sodium (137-145) mmol/L Potassium (3.5-5.1) mmol/L Carbon Dioxide (22-30) mmol/L BUN (7-17) mg/dL Creatinine (0.52-1.04) mg/dL Glucose (74-99) mg/dL Plasma Lactic Acid Anjel 4.2 H* (0.7-2.0) mmol/L Calcium (8.4-10.2) mg/dL Phosphorus (2.5-4.5) mg/dL Total Bilirubin (0.2-1.3) mg/dL AST (14-36) U/L Alkaline Phosphatase (38-126) U/L Total Protein (6.3-8.2) g/dL Albumin (3.5-5.0) g/dL Urine Protein Trace H (Negative) Urine Ketones 4+ H (Negative) Urine Nitrite Positive H (Negative) Urine Bacteria Occasional H (None) /hpf Hyaline Casts 5 H (0-2) /lpf Urine Mucus Rare H (None) /hpf Crossmatch See Detail 11/29/23 11/29/23 11/30/23 Range/Units 19:42 22:53 03:33 RBC (3.80-5.40) m/uL Hgb (11.4-16.0) gm/dL Hct (34.0-46.0) % RDW (11.5-15.5) % Lymphocytes # (1.0-4.8) k/uL Sodium (137-145) mmol/L Potassium (3.5-5.1) mmol/L Carbon Dioxide (22-30) mmol/L BUN (7-17) mg/dL Creatinine (0.52-1.04) mg/dL Glucose (74-99) mg/dL Plasma Lactic Acid Anjel 4.2 H* 3.6 H* 5.5 H* (0.7-2.0) mmol/L Calcium (8.4-10.2) mg/dL Phosphorus (2.5-4.5) mg/dL Total Bilirubin (0.2-1.3) mg/dL AST (14-36) U/L Alkaline Phosphatase (38-126) U/L Total Protein (6.3-8.2) g/dL Albumin (3.5-5.0) g/dL Urine Protein (Negative) Urine Ketones (Negative) Urine Nitrite (Negative) Urine Bacteria (None) /hpf Hyaline Casts (0-2) /lpf Urine Mucus (None) /hpf Crossmatch 11/30/23 11/30/23 11/30/23 Range/Units 03:33 03:33 07:12 RBC 2.39 L (3.80-5.40) m/uL Hgb 7.0 L (11.4-16.0) gm/dL Hct 21.3 L (34.0-46.0) % RDW 19.1 H (11.5-15.5) % Lymphocytes # 0.9 L (1.0-4.8) k/uL Sodium 130 L (137-145) mmol/L Potassium 3.2 L (3.5-5.1) mmol/L Carbon Dioxide 20 L (22-30) mmol/L BUN 4 L (7-17) mg/dL Creatinine 0.38 L (0.52-1.04) mg/dL Glucose 165 H (74-99) mg/dL Plasma Lactic Acid Anjel 6.1 H* (0.7-2.0) mmol/L Calcium 7.4 L (8.4-10.2) mg/dL Phosphorus 1.5 L (2.5-4.5) mg/dL Total Bilirubin 2.3 H (0.2-1.3) mg/dL AST 47 H (14-36) U/L Alkaline Phosphatase 133 H (38-126) U/L Total Protein 5.0 L (6.3-8.2) g/dL Albumin 2.9 L (3.5-5.0) g/dL Urine Protein (Negative) Urine Ketones (Negative) Urine Nitrite (Negative) Urine Bacteria (None) /hpf Hyaline Casts (0-2) /lpf Urine Mucus (None) /hpf Crossmatch 11/30/23 11/30/23 Range/Units 09:53 09:53 RBC 2.34 L (3.80-5.40) m/uL Hgb 6.9 L* (11.4-16.0) gm/dL Hct 21.0 L (34.0-46.0) % RDW 19.2 H (11.5-15.5) % Lymphocytes # (1.0-4.8) k/uL Sodium (137-145) mmol/L Potassium (3.5-5.1) mmol/L Carbon Dioxide (22-30) mmol/L BUN (7-17) mg/dL Creatinine (0.52-1.04) mg/dL Glucose (74-99) mg/dL Plasma Lactic Acid Anjel 6.1 H* (0.7-2.0) mmol/L Calcium (8.4-10.2) mg/dL Phosphorus (2.5-4.5) mg/dL Total Bilirubin (0.2-1.3) mg/dL AST (14-36) U/L Alkaline Phosphatase (38-126) U/L Total Protein (6.3-8.2) g/dL Albumin (3.5-5.0) g/dL Urine Protein (Negative) Urine Ketones (Negative) Urine Nitrite (Negative) Urine Bacteria (None) /hpf Hyaline Casts (0-2) /lpf Urine Mucus (None) /hpf Crossmatch Chest x-ray: report reviewed (No acute cardiopulmonary disease/process) Assessment and Plan (1) Anemia Narrative/Plan: 58-year-old debilitated woman presenting to the emergency department with increased weakness and debilitation which has been progressing over the last couple years duration. Has history of heavy alcohol use still currently drinking most days. Presents with a normochromic normocytic anemia who is hyponatremic, hypokalemic and presenting with of lactic acidosis. She denies any signs or symptoms of GI bleed. She has had a upper and lower endoscopy within the last year with no findings to account for anemia. Need to consider possible varices, alcohol gastritis or esophagitis, peptic ulcer disease, AVM or other possible etiologies. Will proceed with upper endoscopy with possible small bowel capsule endoscopy. Continue symptomatic treatment with Protonix 40 mg twice daily. Transfuse for hemoglobin less than 7. Current Visit: Yes Status: Acute Code(s): D64.9 - ANEMIA, UNSPECIFIED SNOMED Code(s): 767983236 (2) Hyponatremia Current Visit: Yes Status: Acute Code(s): E87.1 - HYPO-OSMOLALITY AND HYPONATREMIA SNOMED Code(s): 40760921 (3) Hypokalemia Current Visit: Yes Status: Acute Code(s): E87.6 - HYPOKALEMIA SNOMED Code(s): 12869714 (4) Hypomagnesemia Current Visit: Yes Status: Acute Code(s): E83.42 - HYPOMAGNESEMIA SNOMED Code(s): 111066548 (5) Elevated LFTs Narrative/Plan: Secondary to alcohol abuse, likely underlying liver disease Current Visit: Yes Status: Acute Code(s): R79.89 - OTHER SPECIFIED ABNORMAL FINDINGS OF BLOOD CHEMISTRY SNOMED Code(s): 689308144 Plan: 1. Continue symptomatic and supportive care 2. Protonix 40 mg twice daily 3. Daily BMP, CBC, transfuse for hemoglobin less than 7 4. Replace potassium per protocol 5. Replace magnesium per protocol 6. Transfuse 1 unit PRBC 7. Await iron studies 8. Plan for upper endoscopy and possible small bowel capsule endoscopy tomorrow 9. Clear liquid diet, n.p.o. after midnight Thank you for this consultation, we will continue to follow. Dr. Thompson Fields I agree with the dictator's note, documented as a scribe by Alicia Hudson.
[2023-11-30 15:47] LABS: Iron 151 UG/DL (50-170); Total Iron Binding Capacity 171 UG/DL (228-460)
[2023-11-30] MEDS: POTASSIUM PHOSPHATE 10 MMOL in SODIUM CHLORIDE 0.9% 250 ML IV SCH (15:49)
[2023-11-30] MEDS: SODIUM CHLORIDE 0.9% 1,000 ML BAG IV STA (15:55)
[2023-11-30] MEDS: LACTATED RINGERS 1,000 ML IV SCH (18:05)
[2023-11-30] MEDS ORDERED: Potassium Replacement Protocol 1 EACH MISC MISCELLANE PRN (22:52)
[2023-12-01 07:43] LABS: Anisocytosis Slight; Basophils % (A) 0 %; Eosinophils # (A) 0.1 k/uL (0-0.7); Eosinophils % (A) 1 %; HCT 26.7 % (34.0-46.0); Hypochromasia Slight; Lymphocytes # (A) 0.8 k/uL (1.0-4.8); Lymphocytes % (A) 14 %; MCH 29.1 pg (25.0-35.0); MCHC 32.6 g/dL (31.0-37.0); MCV 89.3 fL (80.0-100.0); Mean Platelet Volume 9.1; Monocytes # (A) 0.3 k/uL (0-1.0); Monocytes % (A) 5 %; Neutrophils # (A) 4.6 k/uL (1.3-7.7); Neutrophils % (A) 78 %; Platelet Count 177 k/uL (150-450); Poikilocytosis Moderate; RBC 2.99 m/uL (3.80-5.40); RDW 19.1 % (11.5-15.5); WBC 5.8 k/uL (3.8-10.6)
[2023-12-01 07:54] LABS: ALT 13 U/L (4-34); AST 47 U/L (14-36); African American GFR (CKD) >90 (>60 ml/min/1.73 sqM); Albumin 2.5 g/dL (3.5-5.0); Alkaline Phosphatase 107 U/L (38-126); Anion Gap 7 mmol/L; Blood Urea Nitrogen <2 mg/dL (7-17); Carbon Dioxide 20 mmol/L (22-30); Chloride 106 mmol/L (98-107); Glucose 129 mg/dL (74-99); Non-African American GFR(CKD) >90 (>60 ml/min/1.73 sqM); Potassium 4.1 mmol/L (3.5-5.1); Sodium 133 mmol/L (137-145); Total Bilirubin 1.8 mg/dL (0.2-1.3); Total Protein 4.6 g/dL (6.3-8.2)
[2023-12-01 08:08] LABS: HGB 8.7 gm/dL (11.4-16.0)
--- NOTE | 2023-12-01 10:24 | P.CONS ---
History of Present Illness - Reason for Consult Consult date: 12/01/23 wound care - History of Present Illness This is a 58-year-old patient being seen on 3 S. for stage II ulceration to the right and left buttocks. The right buttocks ulceration is 1 x 1 x 0.2 cm with fat layer exposed slough and nonviable tissue present minimal granulation. The left buttocks ulcerations 1.6 x 1 x 0.1 cm with fat layer exposure no tunneling or undermining noted. Patient states that the ulceration has been there for a while. She spends the majority of her time sitting. Patient states that she does not want to stay on any offloading devices because it will be uncomfortable. Patient has not used any dressing dressing since the ulceration started. Review Of Systems: Constitutional: No fever, no chills, no night sweats. No weight change. No weakness, fatigue or lethargy. No daytime sleepiness. Integumentary:reports wounds, no lesions. No rash or pruritus. No unusual bruising. No change in hair or nails. Physical exam: General Appearance: Alert, cooperative, no distress, appears stated age. Skin: See HPI all other Skin color, texture, tugor normal, no rashes or lesions. Neurologic: Alert oriented x3 Assessment: 1. Stage II pressure ulcer left buttocks 2. Stage II pressure ulcer right buttocks Plan: 1. Apply honey gel and bordered foam to the site utilize air-filled cushion whi le sitting. Turn patient to 2 hours and as needed. Thank you for the consultation any questions please contact the wound care center DNP note has been reviewed and discussed with Dr. Nicholas and the impression and plan of care has been directed as dictated. Past Medical History Past Medical History: GERD/Reflux Additional Past Medical History / Comment(s): HAD BEEN HAVING DIARRHEA WITH BLOOD FOR PAST SEVERAL MONTHS History of Any Multi-Drug Resistant Organisms: None Reported Additional Past Surgical History / Comment(s): ORAL SX. COLONOSCOPY Past Anesthesia/Blood Transfusion Reactions: No Reported Reaction Past Psychological History: No Psychological Hx Reported Smoking Status: Current every day smoker - Past Family History Father Family Medical History: Cancer Medications and Allergies Home Medications Medication Instructions Recorded Confirmed Type No Known Home Medications 11/29/23 11/29/23 History Allergies Allergy/AdvReac Type Severity Reaction Status Date / Time No Known Allergies Allergy Verified 11/29/23 13:11 Physical Exam Vitals: Vital Signs Temp Pulse Pulse Resp BP BP Pulse Ox 12/01/23 04:00 98.0 F 114 H 17 127/88 99 12/01/23 02:00 110 H 16 12/01/23 00:08 98.0 F 110 H 17 125/86 97 12/01/23 00:00 98.0 F 110 H 17 125/86 96 11/30/23 21:24 98.0 F 103 H 18 131/85 100 11/30/23 21:04 97.9 F 105 H 18 127/84 99 11/30/23 20:54 97.9 F 114 H 18 116/81 100 11/30/23 20:00 97.9 F 114 H 16 116/81 100 11/30/23 16:00 99 100 11/30/23 14:10 101 H 16 174/86 100 11/30/23 11:54 98.2 F 105 H 16 94/64 97 11/30/23 11:00 105 H 97/79 100 Intake and Output 11/30/23 12/01/23 12/01/23 22:59 06:59 14:59 Intake Total 0 310 Output Total 350 420 Balance -350 -110 Intake: Blood Product 0 310 Rc As-1 Unit 0 310 [id number] Output: Urine 350 420 Other: Voiding Method Diaper Diaper External Catheter External Catheter Weight 56.6 kg Results CBC & Chem 7: 12/01/23 06:41 12/01/23 06:41 Labs: Abnormal Lab Results - Last 24 Hours (Table) 11/29/23 11/30/23 11/30/23 Range/Units 13:04 03:33 09:53 RBC 2.34 L (3.80-5.40) m/uL Hgb 6.9 L* (11.4-16.0) gm/dL Hct 21.0 L (34.0-46.0) % RDW 19.2 H (11.5-15.5) % Lymphocytes # (1.0-4.8) k/uL Sodium (137-145) mmol/L Carbon Dioxide (22-30) mmol/L BUN (7-17) mg/dL Creatinine (0.52-1.04) mg/dL Glucose (74-99) mg/dL Plasma Lactic Acid Anjel (0.7-2.0) mmol/L Calcium (8.4-10.2) mg/dL TIBC 171 L (228-460) UG/DL % Saturation 88.30 H (12.00-45.00) Transferrin 122.0 L (204.0-354.0) mg/dL Total Bilirubin (0.2-1.3) mg/dL AST (14-36) U/L Total Protein (6.3-8.2) g/dL Albumin (3.5-5.0) g/dL Crossmatch See Detail 11/30/23 12/01/23 12/01/23 Range/Units 09:53 06:41 06:41 RBC 2.99 L (3.80-5.40) m/uL Hgb 8.7 L D (11.4-16.0) gm/dL Hct 26.7 L (34.0-46.0) % RDW 19.1 H (11.5-15.5) % Lymphocytes # 0.8 L (1.0-4.8) k/uL Sodium 133 L (137-145) mmol/L Carbon Dioxide 20 L (22-30) mmol/L BUN <2 L (7-17) mg/dL Creatinine 0.33 L (0.52-1.04) mg/dL Glucose 129 H (74-99) mg/dL Plasma Lactic Acid Anjel 6.1 H* (0.7-2.0) mmol/L Calcium 7.0 L (8.4-10.2) mg/dL TIBC (228-460) UG/DL % Saturation (12.00-45.00) Transferrin (204.0-354.0) mg/dL Total Bilirubin 1.8 H (0.2-1.3) mg/dL AST 47 H (14-36) U/L Total Protein 4.6 L (6.3-8.2) g/dL Albumin 2.5 L (3.5-5.0) g/dL Crossmatch Microbiology - Last 24 Hours (Table) 11/30/23 04:15 Urine Culture - Preliminary Urine,Voided Gram Neg Bacilli Assessment and Plan (1) Stage II pressure ulcer of left buttock Current Visit: Yes Status: Acute Code(s): L89.322 - PRESSURE ULCER OF LEFT BUTTOCK, STAGE 2 SNOMED Code(s): 65116723237211 (2) Stage II pressure ulcer of right buttock Current Visit: Yes Status: Acute Code(s): L89.312 - PRESSURE ULCER OF RIGHT BUTTOCK, STAGE 2 SNOMED Code(s): 04825114757881
[2023-12-01] MEDS ORDERED: Magnesium Replacement Protocol 1 EACH MISC MISCELLANE PRN (12:36)
[2023-12-01] MEDS: MAGNESIUM SULFATE-D5W PMX 1 GM in DEXTROSE/WATER 1 100ML.BAG IVPB SCH (12:48)
[2023-12-01] MEDS ORDERED: LIDOCAINE 1% INJ 10MG/ML (20 ML MDV) ONE (16:18)
[2023-12-01] MEDS ORDERED: PROPOFOL 10 MG/ML 20 ML VIAL IV ONE (16:18)
[2023-12-01] MEDS: SODIUM CHLORIDE 0.9% 500 ML 500 ML IV ONE (16:19)
--- NOTE | 2023-12-01 16:43 | P.PCN ---
Date of Procedure: 12/01/23 Procedure(s) Performed: BRIEF HISTORY: Patient is a 58-year-old, pleasant, white female scheduled for an upper endoscopy and upon evaluation of rectal stools and anemia with a hemoglobin of 5.6 g/dL. She is s/p units of PRBC transfusion. Last EGD and colonoscopy in December 2022 PROCEDURE PERFORMED: Esophagogastroduodenoscopy with argon plasma coagulation. PREOPERATIVE DIAGNOSIS: Severe symptomatic anemia and black tarry stool. IV sedation per anesthesia. PROCEDURE: After informed consent was obtained, the patient was brought into the endoscopy unit. IV sedation was administered by Anesthesia under continuous monitoring. Initially the Olympus GIF-140 video endoscope was inserted into the mouth. Esophagus intubated without any difficulty. It was gradually advanced into the stomach and duodenum and carefully examined. The bulb of the duodenum appeared normal. Multiple duodenal angiectasia with oozing noted in the second part of the duodenum and along the duodenal sweep with cauterization of the proximal coagulation. Scope at this time was withdrawn to the stomach, adequately insufflated with air, and upon careful examination, mucosa of the antrum, body, cardia and the fundus appeared normal. The scope was then withdrawn into the esophagus. The GE junction was located at 39 cm from the incisors. Small hiatal hernia noted. The esophagus appeared normal. There were no erosions or ulcerations seen and the patient tolerated the procedure well. IMPRESSION: 1. Duodenal angiectasia along the duodenal sweep and second part of the duodenum with some oozing s/p argon plasma coagulation as described above. 2. Small hiatal hernia. RECOMMENDATIONS: The findings of this examination were discussed with the patient as well as her family. She will be continued on Protonix 40 mg daily. Monitor CBC daily. Advance diet as tolerated..
[2023-12-02 07:05] LABS: Anisocytosis Slight; Basophils % (A) 0 %; Eosinophils # (A) 0.1 k/uL (0-0.7); Eosinophils % (A) 2 %; HCT 26.4 % (34.0-46.0); HGB 8.5 gm/dL (11.4-16.0); Hypochromasia Slight; Lymphocytes # (A) 0.8 k/uL (1.0-4.8); Lymphocytes % (A) 15 %; MCHC 32.4 g/dL (31.0-37.0); MCV 89.6 fL (80.0-100.0); Mean Platelet Volume 9.1; Monocytes # (A) 0.2 k/uL (0-1.0); Monocytes % (A) 3 %; Neutrophils # (A) 4.3 k/uL (1.3-7.7); Neutrophils % (A) 78 %; Platelet Count 177 k/uL (150-450); Poikilocytosis Moderate; RBC 2.94 m/uL (3.80-5.40); RDW 19.3 % (11.5-15.5); WBC 5.5 k/uL (3.8-10.6)
[2023-12-02 07:27] LABS: African American GFR (CKD) >90 (>60 ml/min/1.73 sqM); Anion Gap 8 mmol/L; Blood Urea Nitrogen <2 mg/dL (7-17); Calcium 7.1 mg/dL (8.4-10.2); Carbon Dioxide 20 mmol/L (22-30); Chloride 104 mmol/L (98-107); Glucose 109 mg/dL (74-99); Magnesium 1.7 mg/dL (1.6-2.3); Non-African American GFR(CKD) >90 (>60 ml/min/1.73 sqM); Potassium 4.6 mmol/L (3.5-5.1); Sodium 132 mmol/L (137-145)
[2023-12-03 07:53] LABS: African American GFR (CKD) >90 (>60 ml/min/1.73 sqM); Anion Gap 3 mmol/L; Blood Urea Nitrogen 4 mg/dL (7-17); Calcium 7.6 mg/dL (8.4-10.2); Carbon Dioxide 22 mmol/L (22-30); Chloride 103 mmol/L (98-107); Glucose 108 mg/dL (74-99); Non-African American GFR(CKD) >90 (>60 ml/min/1.73 sqM); Potassium 5.1 mmol/L (3.5-5.1); Sodium 128 mmol/L (137-145)
[2023-12-03 07:59] LABS: Anisocytosis Slight; Basophils % (A) 0 %; Eosinophils # (A) 0.1 k/uL (0-0.7); Eosinophils % (A) 1 %; HCT 26.9 % (34.0-46.0); HGB 8.9 gm/dL (11.4-16.0); Hypochromasia Slight; Lymphocytes # (A) 1.1 k/uL (1.0-4.8); Lymphocytes % (A) 15 %; MCH 29.4 pg (25.0-35.0); MCHC 32.9 g/dL (31.0-37.0); MCV 89.4 fL (80.0-100.0); Mean Platelet Volume 10.3; Monocytes # (A) 0.3 k/uL (0-1.0); Monocytes % (A) 4 %; Neutrophils # (A) 5.7 k/uL (1.3-7.7); Neutrophils % (A) 78 %; Platelet Count 190 k/uL (150-450); Poikilocytosis Moderate; RBC 3.01 m/uL (3.80-5.40); RDW 19.3 % (11.5-15.5); WBC 7.3 k/uL (3.8-10.6)
[2023-12-03] MEDS: ONDANSETRON 4 MG/2 ML VIAL IVP PRN (08:53)
[2023-12-03] MEDS: bisacodyL 10 MG SUPP RECTAL STA (17:37)
[2023-12-03 19:29] LABS: Glucose,Whole Blood 87 mg/dL (70-110)
--- NOTE | 2023-12-04 01:43 | P.PN ---
Subjective Progress Note Date: 11/30/23 Patient is a 58-year-old female with a past medical history of GERD/reflux, chronic anemia, severe alcohol abuse and currently everyday smoker presents to ER due to generalized weakness and unable to take care of her at home. Patient was unable to get around her home and also not able to eat or drink secondary to weakness. Patient has not been getting around for the past 2 years. Patient does have history of chronic diarrhea and underwent EGD and colonoscopy about a year back. No active bleeding was noted at that time. Patient complains of coughing up brown liquid sometimes. Also complaining of epigastric discomfort. No complaints of chest pain. Patient is currently not taking any medications at home. Patient has been having poor appetite. Continues to smoke. Has been having chronic cough. Patient also complained of sacral pressure ulcer. Patient is unable to provide much history. Patient lives by herself and her friend who is 80-year-old gentleman provides care for her. On admission chest x-ray showed no acute cardiopulmonary process. COPD changes. EKG showed sinus tachycardia. Laboratory data showed WBC 6.8 hemoglobin 5.9 and platelets 277 RDW 19.7 Sodium 134 potassium 3.0 chloride 90 bicarb is 19 BUN 17 creatinine 0.44 and blood sugar 58 and lactic acid 3.8 and magnesium 1.0 total bili 1.6 AST 75 ALT 14 alk phos 146 troponin x 1 negative albumin 3.9 Urinalysis showed trace protein glucose negative 4+ ketones and nitrite positive RBCs and WBCs 1 hyaline cast 5. 11/30/2023 Patient is currently lying in the bed. Awake alert. Lethargic and weak. Patient states that she is unable to get out of bed. Patient received 1 unit of blood transfusion. Hemoglobin improved to 7.0 and 6.9 this morning. Other laboratory data showed WBC 5.4 hemoglobin 6.9 platelets 315 Sodium 130 potassium 3.2 chloride 99 bicarb is 20 BUN 14 creatinine 0.38 and blood sugar 165 lactic acid 5.5 phosphorus 1.5 iron profile showed TIBC 171% with a saturation 88.3 total ferritin 122. Liver enzymes slightly elevated. B12 and folate normal limits. Gastroenterology is on board. Planning for EGD tomorrow. Current medications reviewed. Objective - Vital Signs Vital signs: Vital Signs Temp 98.0 F 11/30/23 21:24 Pulse 103 H 11/30/23 21:24 Resp 18 11/30/23 21:24 BP 131/85 11/30/23 21:24 Pulse Ox 100 11/30/23 21:24 FiO2 Intake & Output 11/30/23 11/30/23 12/01/23 06:59 18:59 06:59 Intake Total 138 0 Output Total 400 350 Balance -262 -350 Weight 49.895 kg Intake: IV 20 Invasive Line 1 10 Invasive Line 2 10 Oral 118 Blood Product 0 Rc As-1 Unit 0 [id number] Output: Urine 400 350 Other: Voiding Method Diaper Diaper External Catheter External Catheter - Exam PHYSICAL EXAMINATION: Patient is lying in the bed,, no acute distress, awake alert and oriented but lethargic and weak HEENT: Normocephalic. Neck is supple. Pupils reactive. Nostrils clear. Oral cavity is moist. Neck reveals no JVD, carotid bruits, or thyromegaly. CHEST EXAMINATION: Trachea is central. Symmetrical expansion. Bibasilar diminished sounds. Lung abrams clear to auscultation and percussion. CARDIAC: Normal S1, S2 with no gallops. No murmurs ABDOMEN: Soft. Bowel sounds normal. No organomegaly. No abdominal bruits. Extremities: reveal no edema. No clubbing or cyanosis Neurologically awake, alert, oriented x 2-3. Able to move all extremities while in bed. No gross focal neurological deficit. Skin: No rash. patient does have stage II sacral decub ulcers Psychiatric: Coperative. Could not be assessed completely Musculoskeletal: No joint swelling or deformity. - Labs CBC & Chem 7: 12/03/23 06:50 12/03/23 06:50 Labs: Abnormal Lab Results - Last 24 Hours (Table) 11/29/23 11/29/23 11/30/23 Range/Units 13:04 22:53 03:33 RBC (3.80-5.40) m/uL Hgb (11.4-16.0) gm/dL Hct (34.0-46.0) % RDW (11.5-15.5) % Lymphocytes # (1.0-4.8) k/uL Sodium (137-145) mmol/L Potassium (3.5-5.1) mmol/L Carbon Dioxide (22-30) mmol/L BUN (7-17) mg/dL Creatinine (0.52-1.04) mg/dL Glucose (74-99) mg/dL Plasma Lactic Acid Anjel 3.6 H* 5.5 H* (0.7-2.0) mmol/L Calcium (8.4-10.2) mg/dL Phosphorus (2.5-4.5) mg/dL TIBC (228-460) UG/DL % Saturation (12.00-45.00) Transferrin (204.0-354.0) mg/dL Total Bilirubin (0.2-1.3) mg/dL AST (14-36) U/L Alkaline Phosphatase (38-126) U/L Total Protein (6.3-8.2) g/dL Albumin (3.5-5.0) g/dL Crossmatch See Detail 11/30/23 11/30/23 11/30/23 Range/Units 03:33 03:33 07:12 RBC 2.39 L (3.80-5.40) m/uL Hgb 7.0 L (11.4-16.0) gm/dL Hct 21.3 L (34.0-46.0) % RDW 19.1 H (11.5-15.5) % Lymphocytes # 0.9 L (1.0-4.8) k/uL Sodium 130 L (137-145) mmol/L Potassium 3.2 L (3.5-5.1) mmol/L Carbon Dioxide 20 L (22-30) mmol/L BUN 4 L (7-17) mg/dL Creatinine 0.38 L (0.52-1.04) mg/dL Glucose 165 H (74-99) mg/dL Plasma Lactic Acid Anjel 6.1 H* (0.7-2.0) mmol/L Calcium 7.4 L (8.4-10.2) mg/dL Phosphorus 1.5 L (2.5-4.5) mg/dL TIBC 171 L (228-460) UG/DL % Saturation 88.30 H (12.00-45.00) Transferrin 122.0 L (204.0-354.0) mg/dL Total Bilirubin 2.3 H (0.2-1.3) mg/dL AST 47 H (14-36) U/L Alkaline Phosphatase 133 H (38-126) U/L Total Protein 5.0 L (6.3-8.2) g/dL Albumin 2.9 L (3.5-5.0) g/dL Crossmatch 11/30/23 11/30/23 Range/Units 09:53 09:53 RBC 2.34 L (3.80-5.40) m/uL Hgb 6.9 L* (11.4-16.0) gm/dL Hct 21.0 L (34.0-46.0) % RDW 19.2 H (11.5-15.5) % Lymphocytes # (1.0-4.8) k/uL Sodium (137-145) mmol/L Potassium (3.5-5.1) mmol/L Carbon Dioxide (22-30) mmol/L BUN (7-17) mg/dL Creatinine (0.52-1.04) mg/dL Glucose (74-99) mg/dL Plasma Lactic Acid Anjel 6.1 H* (0.7-2.0) mmol/L Calcium (8.4-10.2) mg/dL Phosphorus (2.5-4.5) mg/dL TIBC (228-460) UG/DL % Saturation (12.00-45.00) Transferrin (204.0-354.0) mg/dL Total Bilirubin (0.2-1.3) mg/dL AST (14-36) U/L Alkaline Phosphatase (38-126) U/L Total Protein (6.3-8.2) g/dL Albumin (3.5-5.0) g/dL Crossmatch Assessment and Plan Assessment: Symptomatic anemia Acute on chronic blood loss anemia with hemoglobin 5.9 on admission Hypovolemic hyponatremia due to poor oral intake Severe hypokalemia and hypomagnesemia. Replaced. Lactic acidosis due to dehydration volume depletion History of alcohol abuse. Mild transaminitis Medical debility unable to provide care for her Failure to thrive. Stage II sacral decub ulcers DVT prophylaxis SCDs Plan: Patient will be continued on IV hydration with D5 normal saline and continue to replace electrolytes. Replace electrolytes. Patient will be continued on Protonix IV twice daily and monitor H&H. Patient was transfused with 1 unit of PRBC. Monitor H&H. Transfuse if hemo globin less than 7. GI is on board and is planning for EGD tomorrow. Reviewed iron profile, B12, folate and TSH levels. Pain management with Tylenol. Wound care consult for sacral decubitus ulcers. Discussed with her friend at bedside in detail. Prognosis guarded. PT OT to be consulted. Time with Patient: Greater than 30
--- NOTE | 2023-12-04 01:46 | P.PN ---
Subjective Progress Note Date: 12/01/23 Patient is a 58-year-old female with a past medical history of GERD/reflux, chronic anemia, severe alcohol abuse and currently everyday smoker presents to ER due to generalized weakness and unable to take care of her at home. Patient was unable to get around her home and also not able to eat or drink secondary to weakness. Patient has not been getting around for the past 2 years. Patient does have history of chronic diarrhea and underwent EGD and colonoscopy about a year back. No active bleeding was noted at that time. Patient complains of coughing up brown liquid sometimes. Also complaining of epigastric discomfort. No complaints of chest pain. Patient is currently not taking any medications at home. Patient has been having poor appetite. Continues to smoke. Has been having chronic cough. Patient also complained of sacral pressure ulcer. Patient is unable to provide much history. Patient lives by herself and her friend who is 80-year-old gentleman provides care for her. On admission chest x-ray showed no acute cardiopulmonary process. COPD changes. EKG showed sinus tachycardia. Laboratory data showed WBC 6.8 hemoglobin 5.9 and platelets 277 RDW 19.7 Sodium 134 potassium 3.0 chloride 90 bicarb is 19 BUN 17 creatinine 0.44 and blood sugar 58 and lactic acid 3.8 and magnesium 1.0 total bili 1.6 AST 75 ALT 14 alk phos 146 troponin x 1 negative albumin 3.9 Urinalysis showed trace protein glucose negative 4+ ketones and nitrite positive RBCs and WBCs 1 hyaline cast 5. 11/30/2023 Patient is currently lying in the bed. Awake alert. Lethargic and weak. Patient states that she is unable to get out of bed. Patient received 1 unit of blood transfusion. Hemoglobin improved to 7.0 and 6.9 this morning. Other laboratory data showed WBC 5.4 hemoglobin 6.9 platelets 315 Sodium 130 potassium 3.2 chloride 99 bicarb is 20 BUN 14 creatinine 0.38 and blood sugar 165 lactic acid 5.5 phosphorus 1.5 iron profile showed TIBC 171% with a saturation 88.3 total ferritin 122. Liver enzymes slightly elevated. B12 and folate normal limits. Gastroenterology is on board. Planning for EGD tomorrow. 12/01/2023 Patient is awake alert and oriented. But still feels weak and unable to get out of bed. No complaints of chest pain or shortness of breath. Patient is scheduled for EGD today. Laboratory data showed WBC 5.8 hemoglobin 8.7 and platelets 177 sodium 133 potassium 4.1 chloride 106 bicarb is 20 BUN less than 2 and creatinine 0.33 and blood sugar 129 magnesium 1.2 total bili 1.8 AST 47 ALT 13 alk phos 107 TSH 3.53 EGD showed duodenal angiectasia along with the duodenal sweep and second part of duodenum with some oozing. Status post argon plasma coagulation. Small hiatal hernia. Current medications reviewed. Objective - Vital Signs Vital signs: Vital Signs Temp 97.8 F 12/01/23 08:00 Pulse 103 H 12/01/23 16:00 Resp 18 12/01/23 14:00 BP 122/86 12/01/23 16:00 Pulse Ox 98 12/01/23 16:00 FiO2 Intake & Output 12/01/23 12/01/23 12/02/23 06:59 18:59 06:59 Intake Total 310 550 Output Total 770 Balance -460 550 Weight 56.6 kg 56.6 kg Intake: IV 200 Intake, IV Titration 350 Amount D5-0.9% NaCl with KCl 40 350 Meq/l 1,000 ml @ 75 mls/ hr IV .[id number] [facility] Rx#: [id number] Blood Product 310 Rc As-1 Unit 310 [id number] Output: Urine 770 Other: Voiding Method Diaper Diaper External Catheter External Catheter - Exam PHYSICAL EXAMINATION: Patient is lying in the bed,, no acute distress, awake alert and oriented but lethargic and weak HEENT: Normocephalic. Neck is supple. Pupils reactive. Nostrils clear. Oral cavity is moist. Neck reveals no JVD, carotid bruits, or thyromegaly. CHEST EXAMINATION: Trachea is central. Symmetrical expansion. Bibasilar diminished sounds. Lung abrams clear to auscultation and percussion. CARDIAC: Normal S1, S2 with no gallops. No murmurs ABDOMEN: Soft. Bowel sounds normal. No organomegaly. No abdominal bruits. Extremities: reveal no edema. No clubbing or cyanosis Neurologically awake, alert, oriented x 2-3. Able to move all extremities while in bed. No gross focal neurological deficit. Skin: No rash. patient does have stage II sacral decub ulcers Psychiatric: Coperative. Could not be assessed completely Musculoskeletal: No joint swelling or deformity. - Labs CBC & Chem 7: 12/03/23 06:50 12/03/23 06:50 Labs: Abnormal Lab Results - Last 24 Hours (Table) 11/29/23 11/30/23 12/01/23 Range/Units 13:04 03:33 06:41 RBC 2.99 L (3.80-5.40) m/uL Hgb 8.7 L D (11.4-16.0) gm/dL Hct 26.7 L (34.0-46.0) % RDW 19.1 H (11.5-15.5) % Lymphocytes # 0.8 L (1.0-4.8) k/uL Sodium (137-145) mmol/L Carbon Dioxide (22-30) mmol/L BUN (7-17) mg/dL Creatinine (0.52-1.04) mg/dL Glucose (74-99) mg/dL Calcium (8.4-10.2) mg/dL Magnesium (1.6-2.3) mg/dL Total Bilirubin (0.2-1.3) mg/dL AST (14-36) U/L Total Protein (6.3-8.2) g/dL Albumin (3.5-5.0) g/dL RBC Folate 872 H (280 - 791) ng/mL Crossmatch See Detail 12/01/23 12/01/23 Range/Units 06:41 06:41 RBC (3.80-5.40) m/uL Hgb (11.4-16.0) gm/dL Hct (34.0-46.0) % RDW (11.5-15.5) % Lymphocytes # (1.0-4.8) k/uL Sodium 133 L (137-145) mmol/L Carbon Dioxide 20 L (22-30) mmol/L BUN <2 L (7-17) mg/dL Creatinine 0.33 L (0.52-1.04) mg/dL Glucose 129 H (74-99) mg/dL Calcium 7.0 L (8.4-10.2) mg/dL Magnesium 1.2 L (1.6-2.3) mg/dL Total Bilirubin 1.8 H (0.2-1.3) mg/dL AST 47 H (14-36) U/L Total Protein 4.6 L (6.3-8.2) g/dL Albumin 2.5 L (3.5-5.0) g/dL RBC Folate (280 - 791) ng/mL Crossmatch Microbiology - Last 24 Hours (Table) 11/30/23 04:15 Urine Culture - Preliminary Urine,Voided Gram Neg Bacilli Assessment and Plan Assessment: Symptomatic anemia Acute on chronic blood loss anemia with hemoglobin 5.9 on admission. 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 Status post argon plasma coagulation. Small hiatal hernia. Hypovolemic hyponatremia due to poor oral intake Severe hypokalemia and hypomagnesemia. Replaced. Lactic acidosis due to dehydration volume depletion History of alcohol abuse. Mild transaminitis Medical debility unable to provide care for her Failure to thrive. Stage II sacral decub ulcers DVT prophylaxis SCDs Plan: Patient will be continued on IV hydration with D5 normal saline and continue to replace electrolytes. Replace electrolytes. Patient will be continued on Protonix IV twice daily and monitor H&H. Patient was transfused with 1 unit of PRBC. Monitor H&H. Transfuse if hemoglobin less than 7. GI is on board. Patient is s/p EGD.. Reviewed iron profile, B12, folate and TSH levels. Pain management with Tylenol. Wound care consult for sacral decubitus ulcers. Discussed with her friend at bedside in detail. Prognosis guarded. PT OT to be consulted. Time with Patient: Greater than 30
--- NOTE | 2023-12-04 01:49 | P.PN ---
Subjective Progress Note Date: 12/02/23 Patient is a 58-year-old female with a past medical history of GERD/reflux, chronic anemia, severe alcohol abuse and currently everyday smoker presents to ER due to generalized weakness and unable to take care of her at home. Patient was unable to get around her home and also not able to eat or drink secondary to weakness. Patient has not been getting around for the past 2 years. Patient does have history of chronic diarrhea and underwent EGD and colonoscopy about a year back. No active bleeding was noted at that time. Patient complains of coughing up brown liquid sometimes. Also complaining of epigastric discomfort. No complaints of chest pain. Patient is currently not taking any medications at home. Patient has been having poor appetite. Continues to smoke. Has been having chronic cough. Patient also complained of sacral pressure ulcer. Patient is unable to provide much history. Patient lives by herself and her friend who is 80-year-old gentleman provides care for her. On admission chest x-ray showed no acute cardiopulmonary process. COPD changes. EKG showed sinus tachycardia. Laboratory data showed WBC 6.8 hemoglobin 5.9 and platelets 277 RDW 19.7 Sodium 134 potassium 3.0 chloride 90 bicarb is 19 BUN 17 creatinine 0.44 and blood sugar 58 and lactic acid 3.8 and magnesium 1.0 total bili 1.6 AST 75 ALT 14 alk phos 146 troponin x 1 negative albumin 3.9 Urinalysis showed trace protein glucose negative 4+ ketones and nitrite positive RBCs and WBCs 1 hyaline cast 5. 11/30/2023 Patient is currently lying in the bed. Awake alert. Lethargic and weak. Patient states that she is unable to get out of bed. Patient received 1 unit of blood transfusion. Hemoglobin improved to 7.0 and 6.9 this morning. Other laboratory data showed WBC 5.4 hemoglobin 6.9 platelets 315 Sodium 130 potassium 3.2 chloride 99 bicarb is 20 BUN 14 creatinine 0.38 and blood sugar 165 lactic acid 5.5 phosphorus 1.5 iron profile showed TIBC 171% with a saturation 88.3 total ferritin 122. Liver enzymes slightly elevated. B12 and folate normal limits. Gastroenterology is on board. Planning for EGD tomorrow. 12/01/2023 Patient is awake alert and oriented. But still feels weak and unable to get out of bed. No complaints of chest pain or shortness of breath. Patient is scheduled for EGD today. Laboratory data showed WBC 5.8 hemoglobin 8.7 and platelets 177 sodium 133 potassium 4.1 chloride 106 bicarb is 20 BUN less than 2 and creatinine 0.33 and blood sugar 129 magnesium 1.2 total bili 1.8 AST 47 ALT 13 alk phos 107 TSH 3.53 EGD showed duodenal angiectasia along with the duodenal sweep and second part of duodenum with some oozing. Status post argon plasma coagulation. Small hiatal hernia. 12/02/2023 Patient is currently lying in the bed. Awake alert and oriented. Complains of vomiting unable to tolerate oral diet. Still continued on IV Protonix twice daily. Hemoglobin stable and improving to 8.5 today. Other laboratory showed sodium 132 potassium 4.6 chloride 104, bicarb 20 BUN less than 2 and creatinine 0.26 and magnesium proved to 1.7. Wound care has seen the patient. Continued on symptomatic management for nausea/vomiting. Patient states that she did not have any bowel movement last few days. No cough or sputum production. No chest pain or shortness of breath. Laboratory data reviewed. Current medications reviewed. Objective - Vital Signs Vital signs: Vital Signs Temp 98.2 F 12/02/23 04:00 Pulse 119 H 12/02/23 11:22 Resp 18 12/02/23 11:22 BP 99/63 12/02/23 08:00 Pulse Ox 99 12/02/23 08:00 FiO2 Intake & Output 12/02/23 12/02/23 12/03/23 06:59 18:59 06:59 Intake Total 180 Output Total 900 820 Balance -900 -640 Weight 56 kg Intake: Oral 180 Output: Urine 900 550 Emesis 270 Other: Voiding Method Diaper External Catheter - Exam PHYSICAL EXAMINATION: Patient is lying in the bed,, no acute distress, awake alert and oriented but lethargic and weak HEENT: Normocephalic. Neck is supple. Pupils reactive. Nostrils clear. Oral cavity is moist. Neck reveals no JVD, carotid bruits, or thyromegaly. CHEST EXAMINATION: Trachea is central. Symmetrical expansion. Bibasilar diminished sounds. Lung abrams clear to auscultation and percussion. CARDIAC: Normal S1, S2 with no gallops. No murmurs ABDOMEN: Soft. Bowel sounds normal. No organomegaly. No abdominal bruits. Extremities: reveal no edema. No clubbing or cyanosis Neurologically awake, alert, oriented x 2-3. Able to move all extremities while in bed. No gross focal neurological deficit. Skin: No rash. patient does have stage II sacral decub ulcers Psychiatric: Coperative. Could not be assessed completely Musculoskeletal: No joint swelling or deformity. - Labs CBC & Chem 7: 12/03/23 06:50 12/03/23 06:50 Labs: Abnormal Lab Results - Last 24 Hours (Table) 12/02/23 12/02/23 Range/Units 06:36 06:42 RBC 2.94 L (3.80-5.40) m/uL Hgb 8.5 L (11.4-16.0) gm/dL Hct 26.4 L (34.0-46.0) % RDW 19.3 H (11.5-15.5) % Lymphocytes # 0.8 L (1.0-4.8) k/uL Sodium 132 L (137-145) mmol/L Carbon Dioxide 20 L (22-30) mmol/L BUN <2 L (7-17) mg/dL Creatinine 0.26 L (0.52-1.04) mg/dL Glucose 109 H (74-99) mg/dL Calcium 7.1 L (8.4-10.2) mg/dL Microbiology - Last 24 Hours (Table) 11/30/23 04:15 Urine Culture - Final Urine,Voided Escherichia coli Assessment and Plan Assessment: Symptomatic anemia Acute on chronic blood loss anemia with hemoglobin 5.9 on admission. 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 Status post argon plasma coagulation. Small hiatal hernia. Hypovolemic hyponatremia due to poor oral intake Severe hypokalemia and hypomagnesemia. Replaced. Lactic acidosis due to dehydration volume depletion History of alcohol abuse. Mild transaminitis Medical debility unable to provide care for her Failure to thrive. Stage II sacral decub ulcers DVT prophylaxis SCDs Plan: Patient will be continued on IV hydration with D5 normal saline and continue to replace electrolytes. Replace electrolytes. Symptomatic management for nausea and vomiting. Stool softeners. Patient will be continued on Protonix IV twice daily and monitor H&H. Patient was transfused with 1 unit of PRBC. Monitor H&H. Transfuse if hemoglobin less than 7. GI is on board. Patient is s/p EGD.. Reviewed iron profile, B12, folate and TSH levels. Pain management with Tylenol. Wound care consult for sacral decubitus ulcers. Discussed with her friend at bedside in detail. Prognosis guarded. PT OT to be consulted. Time with Patient: Greater than 30
--- NOTE | 2023-12-04 01:52 | P.PN ---
Subjective Progress Note Date: 12/03/23 Patient is a 58-year-old female with a past medical history of GERD/reflux, chronic anemia, severe alcohol abuse and currently everyday smoker presents to ER due to generalized weakness and unable to take care of her at home. Patient was unable to get around her home and also not able to eat or drink secondary to weakness. Patient has not been getting around for the past 2 years. Patient does have history of chronic diarrhea and underwent EGD and colonoscopy about a year back. No active bleeding was noted at that time. Patient complains of coughing up brown liquid sometimes. Also complaining of epigastric discomfort. No complaints of chest pain. Patient is currently not taking any medications at home. Patient has been having poor appetite. Continues to smoke. Has been having chronic cough. Patient also complained of sacral pressure ulcer. Patient is unable to provide much history. Patient lives by herself and her friend who is 80-year-old gentleman provides care for her. On admission chest x-ray showed no acute cardiopulmonary process. COPD changes. EKG showed sinus tachycardia. Laboratory data showed WBC 6.8 hemoglobin 5.9 and platelets 277 RDW 19.7 Sodium 134 potassium 3.0 chloride 90 bicarb is 19 BUN 17 creatinine 0.44 and blood sugar 58 and lactic acid 3.8 and magnesium 1.0 total bili 1.6 AST 75 ALT 14 alk phos 146 troponin x 1 negative albumin 3.9 Urinalysis showed trace protein glucose negative 4+ ketones and nitrite positive RBCs and WBCs 1 hyaline cast 5. 11/30/2023 Patient is currently lying in the bed. Awake alert. Lethargic and weak. Patient states that she is unable to get out of bed. Patient received 1 unit of blood transfusion. Hemoglobin improved to 7.0 and 6.9 this morning. Other laboratory data showed WBC 5.4 hemoglobin 6.9 platelets 315 Sodium 130 potassium 3.2 chloride 99 bicarb is 20 BUN 14 creatinine 0.38 and blood sugar 165 lactic acid 5.5 phosphorus 1.5 iron profile showed TIBC 171% with a saturation 88.3 total ferritin 122. Liver enzymes slightly elevated. B12 and folate normal limits. Gastroenterology is on board. Planning for EGD tomorrow. 12/01/2023 Patient is awake alert and oriented. But still feels weak and unable to get out of bed. No complaints of chest pain or shortness of breath. Patient is scheduled for EGD today. Laboratory data showed WBC 5.8 hemoglobin 8.7 and platelets 177 sodium 133 potassium 4.1 chloride 106 bicarb is 20 BUN less than 2 and creatinine 0.33 and blood sugar 129 magnesium 1.2 total bili 1.8 AST 47 ALT 13 alk phos 107 TSH 3.53 EGD showed duodenal angiectasia along with the duodenal sweep and second part of duodenum with some oozing. Status post argon plasma coagulation. Small hiatal hernia. 12/02/2023 Patient is currently lying in the bed. Awake alert and oriented. Complains of vomiting unable to tolerate oral diet. Still continued on IV Protonix twice daily. Hemoglobin stable and improving to 8.5 today. Other laboratory showed sodium 132 potassium 4.6 chloride 104, bicarb 20 BUN less than 2 and creatinine 0.26 and magnesium proved to 1.7. Wound care has seen the patient. Continued on symptomatic management for nausea/vomiting. Patient states that she did not have any bowel movement last few days. No cough or sputum production. No chest pain or shortness of breath. Laboratory data reviewed. 12/03/2023 Patient is lying in the bed. Awake alert and oriented. No complaints of chest pain or shortness of breath. Patient still complaining of vomiting and able to tolerate oral diet. Continued on symptomatic management. Patient is also on IV Protonix. Hemoglobin improved to 8.9 today. Patient is also complaining of constipation. No headache or dizziness lightheadedness. Continued on wound care and dressing as per consult. Laboratory data showed WBC 7.3, hemoglobin 8.9 platelets 190 sodium 128 potassium 5.1 chloride 103 bicarbonate 22 BUN 14 creatinine 0.28 and blood sugar 108 and calcium 7.6. Current medications reviewed. Objective - Vital Signs Vital signs: Vital Signs Temp 98 F 12/03/23 20:00 Pulse 108 H 12/03/23 20:00 Resp 18 12/03/23 20:00 BP 113/73 12/03/23 20:00 Pulse Ox 98 12/03/23 20:00 FiO2 Intake & Output 12/03/23 12/03/23 12/04/23 06:59 18:59 06:59 Intake Total 240 Output Total 402 2 2 Balance -402 238 -2 Weight 57 kg Intake: Oral 240 Output: Urine 400 Stool 2 2 2 Other: Voiding Method Diaper External Catheter # Bowel Movements 1 - Exam PHYSICAL EXAMINATION: Patient is lying in the bed,, no acute distress, awake alert and oriented but lethargic and weak HEENT: Normocephalic. Neck is supple. Pupils reactive. Nostrils clear. Oral cavity is moist. Neck reveals no JVD, carotid bruits, or thyromegaly. CHEST EXAMINATION: Trachea is central. Symmetrical expansion. Bibasilar diminished sounds. Lung abrams clear to auscultation and percussion. CARDIAC: Normal S1, S2 with no gallops. No murmurs ABDOMEN: Soft. Bowel sounds normal. No organomegaly. No abdominal bruits. Extremities: reveal no edema. No clubbing or cyanosis Neurologically awake, alert, oriented x 2-3. Able to move all extremities while in bed. No gross focal neurological deficit. Skin: No rash. patient does have stage II sacral decub ulcers Psychiatric: Coperative. Could not be assessed completely Musculoskeletal: No joint swelling or deformity. - Labs CBC & Chem 7: 12/03/23 06:50 12/03/23 06:50 Labs: Abnormal Lab Results - Last 24 Hours (Table) 12/03/23 12/03/23 Range/Units 06:50 06:50 RBC 3.01 L (3.80-5.40) m/uL Hgb 8.9 L (11.4-16.0) gm/dL Hct 26.9 L (34.0-46.0) % RDW 19.3 H (11.5-15.5) % Sodium 128 L (137-145) mmol/L BUN 4 L (7-17) mg/dL Creatinine 0.28 L (0.52-1.04) mg/dL Glucose 108 H (74-99) mg/dL Calcium 7.6 L (8.4-10.2) mg/dL Assessment and Plan Assessment: Symptomatic anemia Acute on chronic blood loss anemia with hemoglobin 5.9 on admission. 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 Status post argon plasma coagulation. Small hiatal hernia. Hypovolemic hyponatremia due to poor oral intake Severe hypokalemia and hypomagnesemia. Replaced. Lactic acidosis due to dehydration volume depletion History of alcohol abuse. Mild transaminitis Medical debility unable to provide care for her Failure to thrive. Stage II sacral decub ulcers DVT prophylaxis SCDs Plan: Encourage oral intake. Follow-up sodium level. Replace electrolytes. Symptomatic management for nausea and vomiting. Stool softeners. Patient will be continued on Protonix IV twice daily and monitor H&H. Patient was transfused with 1 unit of PRBC. Monitor H&H. Transfuse if he moglobin less than 7. GI is on board. Patient is s/p EGD.. Reviewed iron profile ., B12, folate and TSH within normal limits Pain management with Tylenol. Wound care consult for sacral decubitus ulcers. Discussed with her friend at bedside in detail. Prognosis guarded. PT OT to be consulted. Time with Patient: Greater than 30
[2023-12-04] MEDS: DEXTROSE 5%-0.9% NACL 1,000 ML IV SCH (07:17)
[2023-12-04 07:21] LABS: Anisocytosis Slight; Basophils % (A) 0 %; Eosinophils % (A) 1 %; HCT 25.1 % (34.0-46.0); HGB 8.1 gm/dL (11.4-16.0); Hypochromasia Moderate; Lymphocytes # (A) 1.1 k/uL (1.0-4.8); Lymphocytes % (A) 17 %; MCH 29.3 pg (25.0-35.0); MCHC 32.3 g/dL (31.0-37.0); MCV 90.5 fL (80.0-100.0); Mean Platelet Volume 10.2; Monocytes # (A) 0.4 k/uL (0-1.0); Monocytes % (A) 6 %; Neutrophils # (A) 4.7 k/uL (1.3-7.7); Neutrophils % (A) 74 %; Platelet Count 188 k/uL (150-450); Poikilocytosis Slight; RBC 2.77 m/uL (3.80-5.40); RDW 19.5 % (11.5-15.5); WBC 6.3 k/uL (3.8-10.6)
[2023-12-04 07:22] LABS: African American GFR (CKD) >90 (>60 ml/min/1.73 sqM); Anion Gap 4 mmol/L; Blood Urea Nitrogen 11 mg/dL (7-17); Calcium 8.4 mg/dL (8.4-10.2); Carbon Dioxide 23 mmol/L (22-30); Chloride 102 mmol/L (98-107); Glucose 103 mg/dL (74-99); Non-African American GFR(CKD) >90 (>60 ml/min/1.73 sqM); Potassium 4.8 mmol/L (3.5-5.1); Sodium 129 mmol/L (137-145)
--- NOTE | 2023-12-04 10:24 | P.PN ---
Subjective Progress Note Date: 12/04/23 Principal diagnosis: Anemia This is a 58-year-old female who presented to the emergency department with weakness and debilitation. Patient states that she has been progressively getting weaker over the last couple weeks duration. She is not getting around well for the last couple years and is getting increasingly difficult. She states she lives alone she has a 84-year-old gentleman that comes to the house once a week to check on her. She does have a history of alcohol abuse and still drinks regularly but patient is not divulging how much. She is known to be anemic with a hemoglobin of 5.9 on admission. Gastroenterology was consulted for anemia. Iron studies were ordered but currently pending. She has a history of previous complaints of abdominal pain and diarrhea and underwent upper and lower endoscopy on 01/03/2023 with findings of upper endoscopy mild gastritis, hiatal hernia. Colonoscopy with findings of colon polyps status post polypectomy, diverticulosis and grade 2 internal hemorrhoids. Patient denies any blood in her stool or black stool. Denies any abdominal pain nausea or vomiting. States that she has had decreased appetite and not eating well. Today's repeat labs WBC 5.4 hemoglobin 6.9 hematocrit 21 platelet count 215,000 INR 1.0 sodium 130 potassium 3.2 BUN 4 creatinine 0.38 lactic acid 6.1 total bilirubin 2.3 AST 47 ALT 12 alkaline phosphatase 133 patient's urine positive for nitrites 12/04/2023 Patient seen and examined today as a follow-up. 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 She remains on Protonix 40 mg daily. Denies any blood in her stool or black stool. States she had a bowel movement yesterday. States she has some abdominal discomfort but no pain. No nausea or vomiting. Tolerating her diet. Hemoglobin 8.1 platelet count 188,000. Objective - Vital Signs Vital signs: Vital Signs Temp 98 F 12/04/23 08:00 Pulse 103 H 12/04/23 08:00 Resp 18 12/04/23 08:00 BP 109/65 12/04/23 08:00 Pulse Ox 97 12/04/23 08:00 FiO2 Intake & Output 12/03/23 12/04/23 12/04/23 18:59 06:59 18:59 Intake Total 240 240 Output Total 2 2 Balance 238 -2 240 Weight 51.9 kg Intake: Oral 240 240 Output: Stool 2 2 Other: # Bowel Movements 1 - Exam General appearance: The patient is alert, oriented, appears in no acute distress. HET: Head is normocephalic and atraumatic. Conjunctiva pink. Sclera anicteric. Neck: Supple without lymphadenopathy. Abdomen: Soft, nontender, nondistended with bowel sounds. No guarding or rigidity. Extremities: Normal skin color and turgor. No pedal edema Skin: No rashes, no jaundice Neurological: No focal deficits. Alert and oriented. - Labs CBC & Chem 7: 12/04/23 06:47 12/04/23 06:47 Labs: Abnormal Lab Results - Last 24 Hours (Table) 12/04/23 12/04/23 Range/Units 06:47 06:47 RBC 2.77 L (3.80-5.40) m/uL Hgb 8.1 L (11.4-16.0) gm/dL Hct 25.1 L (34.0-46.0) % RDW 19.5 H (11.5-15.5) % Sodium 129 L (137-145) mmol/L Creatinine 0.35 L (0.52-1.04) mg/dL Glucose 103 H (74-99) mg/dL Assessment and Plan (1) Anemia Narrative/Plan: 58-year-old debilitated woman presenting to the emergency department with increased weakness and debilitation which has been progressing over the last couple years duration. Has history of heavy alcohol use still currently drinking most days. Presents with a normochromic normocytic anemia who is hyponatremic, hypokalemic and presenting with of lactic acidosis. She denies any signs or symptoms of GI bleed. She has had a upper and lower endoscopy within the last year with no findings to account for anemia. Need to consider p ossible varices, alcohol gastritis or esophagitis, peptic ulcer disease, AVM or other possible etiologies. Will proceed with upper endoscopy with possible small bowel capsule endoscopy. Continue symptomatic treatment with Protonix 40 mg twice daily. Transfuse for hemoglobin less than 7. Current Visit: Yes Status: Acute Code(s): D64.9 - ANEMIA, UNSPECIFIED SNOMED Code(s): 272829677 (2) Angiectasia of gastrointestinal tract Narrative/Plan: Patient status post upper endoscopy with findings duodenal angioectasia with some oozing status post argon plasma coagulation. Continue Protonix, monitor CBC. Current Visit: Yes Status: Acute Code(s): K31.819 - ANGIODYSPLASIA OF STOMACH AND DUODENUM WITHOUT BLEEDING SNOMED Code(s): 5849455147 (3) Hyponatremia Current Visit: Yes Status: Acute Code(s): E87.1 - HYPO-OSMOLALITY AND HYPONATREMIA SNOMED Code(s): 88847318 (4) Hypokalemia Narrative/Plan: Resolved Current Visit: Yes Status: Acute Code(s): E87.6 - HYPOKALEMIA SNOMED Code(s): 44719887 (5) Hypomagnesemia Narrative/Plan: Resolved Current Visit: Yes Status: Acute Code(s): E83.42 - HYPOMAGNESEMIA SNOMED Code(s): 545999116 (6) Elevated LFTs Narrative/Plan: Secondary to alcohol abuse, likely underlying liver disease Current Visit: Yes Status: Acute Code(s): R79.89 - OTHER SPECIFIED ABNORMAL FINDINGS OF BLOOD CHEMISTRY SNOMED Code(s): 402258553 Plan: 1. Continue symptomatic and supportive care 2. Patient is status post upper endoscopy with argon plasma coagulation 3. Continue Protonix 40 mg daily 4. Patient not having any bleeding. Hemoglobin stable. She is cleared from gastroenterology for discharge Thank you for this consultation, we will sign off at this time. Dr. Thompson Fields I agree with the dictator's note, documented as a scribe by Alicia Hudson.
[2023-12-04 14:45] VITALS: BMI 20.2
--- NOTE | 2023-12-04 20:59 | XR ---
EXAMINATION TYPE: XR chest 1V DATE OF EXAM: 12/04/2023 COMPARISON: 11/30/2023 HISTORY: 58-year-old female tachycardia TECHNIQUE: Single frontal view of the chest is obtained. FINDINGS: Heart upper limits of normal in size. Diffuse interstitial density. Blunting of the right costophrenic angle suggesting a small effusion. An NIH projecting along the periphery of the left mid lung most likely skinfold rather than pneumothorax. A small bulla at the lateral right apex measuring 3.3 cm noted. IMPRESSION: 1. COPD with suspected superimposed CHF and early interstitial pulmonary edema. Small right pleural e ffusion. 2. Prominent skin fold along the periphery of the left mid lung felt to be more likely than a pneumot horax. Consider short interval follow-up after improved positioning.
[2023-12-05 10:05] VITALS: RESP 16
[2023-12-05 13:28] VITALS: BP 109/77; PULSE 73; TEMP 98.3
--- NOTE | 2023-12-05 14:07 | XR ---
EXAMINATION TYPE: XR chest 1V DATE OF EXAM: 12/05/2023 COMPARISON: 12/04/2023 HISTORY: 58-year-old female questionable pneumothorax TECHNIQUE: Single frontal view of the chest is obtained. FINDINGS: Heart upper limits of normal in size. Diffuse interstitial hazy densities persist. Some sh ifting opacities at the lung bases now with a small effusion on the left and left basilar opacity. No appreciable pneumothorax. The questioned finding along the periphery of the left lung has not persis bonnie. IMPRESSION: 1. COPD with ongoing pulmonary vascular congestion. Some shifting bibasilar densities, probably mild patchy pulmonary edema. Small left effusion suspected now. 2. No appreciable pneumothorax.
--- NOTE | 2023-12-05 14:46 | P.PN ---
Subjective Progress Note Date: 12/04/23 Patient is a 58-year-old female with a past medical history of GERD/reflux, chronic anemia, severe alcohol abuse and currently everyday smoker presents to ER due to generalized weakness and unable to take care of her at home. Patient was unable to get around her home and also not able to eat or drink secondary to weakness. Patient has not been getting around for the past 2 years. Patient does have history of chronic diarrhea and underwent EGD and colonoscopy about a year back. No active bleeding was noted at that time. Patient complains of coughing up brown liquid sometimes. Also complaining of epigastric discomfort. No complaints of chest pain. Patient is currently not taking any medications at home. Patient has been having poor appetite. Continues to smoke. Has been having chronic cough. Patient also complained of sacral pressure ulcer. Patient is unable to provide much history. Patient lives by herself and her friend who is 80-year-old gentleman provides care for her. On admission chest x-ray showed no acute cardiopulmonary process. COPD changes. EKG showed sinus tachycardia. Laboratory data showed WBC 6.8 hemoglobin 5.9 and platelets 277 RDW 19.7 Sodium 134 potassium 3.0 chloride 90 bicarb is 19 BUN 17 creatinine 0.44 and blood sugar 58 and lactic acid 3.8 and magnesium 1.0 total bili 1.6 AST 75 ALT 14 alk phos 146 troponin x 1 negative albumin 3.9 Urinalysis showed trace protein glucose negative 4+ ketones and nitrite positive RBCs and WBCs 1 hyaline cast 5. 11/30/2023 Patient is currently lying in the bed. Awake alert. Lethargic and weak. Patient states that she is unable to get out of bed. Patient received 1 unit of blood transfusion. Hemoglobin improved to 7.0 and 6.9 this morning. Other laboratory data showed WBC 5.4 hemoglobin 6.9 platelets 315 Sodium 130 potassium 3.2 chloride 99 bicarb is 20 BUN 14 creatinine 0.38 and blood sugar 165 lactic acid 5.5 phosphorus 1.5 iron profile showed TIBC 171% with a saturation 88.3 total ferritin 122. Liver enzymes slightly elevated. B12 and folate normal limits. Gastroenterology is on board. Planning for EGD tomorrow. 12/01/2023 Patient is awake alert and oriented. But still feels weak and unable to get out of bed. No complaints of chest pain or shortness of breath. Patient is scheduled for EGD today. Laboratory data showed WBC 5.8 hemoglobin 8.7 and platelets 177 sodium 133 potassium 4.1 chloride 106 bicarb is 20 BUN less than 2 and creatinine 0.33 and blood sugar 129 magnesium 1.2 total bili 1.8 AST 47 ALT 13 alk phos 107 TSH 3.53 EGD showed duodenal angiectasia along with the duodenal sweep and second part of duodenum with some oozing. Status post argon plasma coagulation. Small hiatal hernia. 12/02/2023 Patient is currently lying in the bed. Awake alert and oriented. Complains of vomiting unable to tolerate oral diet. Still continued on IV Protonix twice daily. Hemoglobin stable and improving to 8.5 today. Other laboratory showed sodium 132 potassium 4.6 chloride 104, bicarb 20 BUN less than 2 and creatinine 0.26 and magnesium proved to 1.7. Wound care has seen the patient. Continued on symptomatic management for nausea/vomiting. Patient states that she did not have any bowel movement last few days. No cough or sputum production. No chest pain or shortness of breath. Laboratory data reviewed. 12/03/2023 Patient is lying in the bed. Awake alert and oriented. No complaints of chest pain or shortness of breath. Patient still complaining of vomiting and able to tolerate oral diet. Continued on symptomatic management. Patient is also on IV Protonix. Hemoglobin improved to 8.9 today. Patient is also complaining of constipation. No headache or dizziness lightheadedness. Continued on wound care and dressing as per consult. Laboratory data showed WBC 7.3, hemoglobin 8.9 platelets 190 sodium 128 potassium 5.1 chloride 103 bicarbonate 22 BUN 14 creatinine 0.28 and blood sugar 108 and calcium 7.6. 12/04/2023 Patient is sitting on the side of the bed. Awake alert and oriented x 3. Currently on room air. No complaints of chest pain or shortness of breath. PT OT was consulted. Hemoglobin is fairly stable at 8.1. No complaints of hematemesis or melena. Patient was able to tolerate oral diet today. No headache or dizziness or lightheadedness. Lactic acid elevated. Patient is also tachycardic Chest x-ray was ordered. Patient is cleared from GI standpoint. Anticipate discharge in the next 24 hours. Current medications reviewed. Objective - Vital Signs Vital signs: Vital Signs Temp 97.7 F 12/04/23 12:13 Pulse 110 H 12/04/23 20:09 Resp 19 12/04/23 20:09 BP 108/73 12/04/23 20:09 Pulse Ox 92 L 12/04/23 20:09 FiO2 Intake & Output 12/04/23 12/04/23 12/05/23 06:59 18:59 06:59 Intake Total 476 Output Total 2 Balance -2 476 Weight 51.9 kg Intake: Oral 476 Output: Stool 2 Other: # Voids 3 # Bowel Movements 1 - Exam PHYSICAL EXAMINATION: Patient is lying in the bed,, no acute distress, awake alert and oriented. HEENT: Normocephalic. Neck is supple. Pupils reactive. Nostrils clear. Oral cavity is moist. Neck reveals no JVD, carotid bruits, or thyromegaly. CHEST EXAMINATION: Trachea is central. Symmetrical expansion. Lung abrams clear to auscultation and percussion. CARDIAC: Normal S1, S2 with no gallops. No murmurs ABDOMEN: Soft. Bowel sounds normal. No organomegaly. No abdominal bruits. Extremities: reveal no edema. No clubbing or cyanosis Neurologically awake, alert, oriented x 2-3. Able to move all extremities while in bed. No gross focal neurological deficit. Skin: No rash. patient does have stage II sacral decub ulcers Psychiatric: Coperative. Denied any suicidal ideation. Musculoskeletal: No joint swelling or deformity. - Labs CBC & Chem 7: 12/04/23 06:47 12/04/23 06:47 Labs: Abnormal Lab Results - Last 24 Hours (Table) 12/04/23 12/04/23 12/04/23 Range/Units 06:47 06:47 07:56 RBC 2.77 L (3.80-5.40) m/uL Hgb 8.1 L (11.4-16.0) gm/dL Hct 25.1 L (34.0-46.0) % RDW 19.5 H (11.5-15.5) % Sodium 129 L (137-145) mmol/L Creatinine 0.35 L (0.52-1.04) mg/dL Glucose 103 H (74-99) mg/dL Plasma Lactic Acid Anjel 2.4 H* (0.7-2.0) mmol/L 12/04/23 12/04/2312/03/24 Range/Units 11:40 15:25 18:50 RBC (3.80-5.40) m/uL Hgb (11.4-16.0) gm/dL Hct (34.0-46.0) % RDW (11.5-15.5) % Sodium (137-145) mmol/L Creatinine (0.52-1.04) mg/dL Glucose (74-99) mg/dL Plasma Lactic Acid Anjel 2.9 H* 3.4 H* 4.2 H* (0.7-2.0) mmol/L Assessment and Plan Assessment: Symptomatic anemia Acute on chronic blood loss anemia with hemoglobin 5.9 on admission. 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 Status post argon plasma coagulation. Small hiatal hernia. Hypovolemic hyponatremia due to poor oral intake Severe hypokalemia and hypomagnesemia. Replaced. Lactic acidosis due to dehydration volume depletion History of alcohol abuse. Mild transaminitis Medical debility unable to provide care for her Failure to thrive. Stage II sacral decub ulcers DVT prophylaxis SCDs Plan: Patient is able to tolerate oral diet today. Sodium level is 129.. Symptomatic management for nausea and vomiting. Stool softeners. Patient will be continued on Protonix IV twice daily and monitor H&H. Patient was transfused with 1 unit of PRBC. Monitor H&H. Transfuse if hemoglobin less than 7. GI is on board. Patient is s/p EGD.. Reviewed iron profile ., B12, folate and TSH within normal limits Pain management with Tylenol. Wound care is following sacral decubitus ulcers. Discussed with her friend at bedside in detail. Prognosis guarded. PT OT to be consulted.
== END 2023-12-05 15:30 | disposition home health service (06) | DRG 253 ==
LOC: EC 11:45 → 3SCARD 14:18
PROVIDERS: ADMIT Internal Medicine; ATTEND Internal Medicine
PROC: 30233N1 Transfusion of Nonautologous Red Blood Cells into Peripheral Vein, Percutaneous Approach (ICD-10-PCS; 2023-11-29)
PROC: 0W3P8ZZ Control Bleeding in Gastrointestinal Tract, Via Natural or Artificial Opening Endoscopic (ICD-10-PCS; principal; 2023-12-01 15:40)
DX: K31.811 Angiodysplasia of stomach and duodenum with bleeding (principal); D62 Acute posthemorrhagic anemia; D51.9 Vitamin B12 deficiency anemia, unspecified; K21.9 Gastro-esophageal reflux disease without esophagitis; L89.152 Pressure ulcer of sacral region, stage 2; L89.312 Pressure ulcer of right buttock, stage 2; K70.9 Alcoholic liver disease, unspecified; L89.322 Pressure ulcer of left buttock, stage 2; E83.42 Hypomagnesemia; E86.0 Dehydration; E86.1 Hypovolemia; E87.1 Hypo-osmolality and hyponatremia; E87.20 Acidosis, unspecified; E87.6 Hypokalemia; F10.11 Alcohol abuse, in remission; F17.200 Nicotine dependence, unspecified, uncomplicated; J44.9 Chronic obstructive pulmonary disease, unspecified; K44.9 Diaphragmatic hernia without obstruction or gangrene; K59.00 Constipation, unspecified; K57.30 Diverticulosis of large intestine without perforation or abscess without bleeding; Z28.21 Immunization not carried out because of patient refusal; Z28.310 Unvaccinated for COVID-19; Z79.899 Other long term (current) drug therapy; Z86.010 Personal history of colon polyps
CPT/HCPCS: 36415; 36430; 43255; 51702; 71045; 71046; 80048; 80053; 81001; 82607; 82728; 82747; 83540; 83550; 83605; 83735; 84100; 84443; 84484; 85025; 85027; 85610; 85730; 86850; 86900; 86901; 86920; 87077; 87086; 87186; 93005; 94760; 96361; 96365; 96366; 96367; 96368; 96375; 96376; 99285